=== PATIENT | female | born 1945 | race African-American/Black ===

== ENCOUNTER → 2023-01-15 14:38 | Outpatient (REF) | payer MEDICARE, MEDICAID, SELFPAY ==
--- NOTE | 2023-01-15 14:47 | CA_ITS ---
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 Normal LV systolic function with LVEF of 55-60% with impaired relaxation filling pattern 2. Trace aortic regurgitation 3. Normal RV systolic pressure 4. No gross pericardial effusion Findings Procedure Information The quality of the study was technically difficult. The study quality is limited by patients body habitus and lung artifact. Left Ventricle Normal left ventricular size, thickness, and systolic function. The visually estimated ejection fraction is between 55-60%. Spectral Doppler is indicative of an impaired relaxation filling pattern. E/E prime ratio is between 8 and 15 consistent with indeterminate filling pressures. Peak GLS is -12%, which is moderately reduced. Right Ventricle Normal right ventricular cavity size. There is borderline right ventricular systolic function. Atria The left atrium is normal in size. Interatrial shunt cannot be excluded. The right atrium is normal in size. Aortic Valve The aortic valve was not well visualized. There is no aortic valve stenosis. There is trace (trivial) aortic valve regurgitation. Mitral Valve There is mild anterior and posterior mitral leaflet thickening. There is trace mitral valve regurgitation. There is no mitral valve stenosis. Pulmonic Valve The pulmonic valve was not well visualized. Tricuspid Valve Likely normal tricuspid valve structure and function. There is trace tricuspid valve regurgitation. The right ventricular systolic pressure is normal. The right ventricular systolic pressure is 25 mmHg. Normal right atrial pressure. There is no evidence of pulmonary hypertension. Great Vessels All visible segments of the aorta are normal in size. The pulmonary artery was not well visualized. Venous The inferior vena cava is normal in size and collapses greater than 50% with inspiration. Pericardium/Pleural There is no evidence of pericardial effusion. Prior Study Comparison No prior study available for comparison. Measurements 2D Linear Measurements IVSd: 0.95 0.6-0.9/0.6-1.0 cm LVIDd: 4.21 3.9-5.3/4.2-5.9 cm LVIDd Index: 2.34 2.4-3.2/2.2-3.1 cm/m2 LVIDs: 3.03 2.0-3.6 cm LVPWd: 0.74 0.7-1.1 cm LA Diam: 4.00 2.7-3.8/3.0-4.0 cm LAIDs Index: 2.22 1.5-2.3 cm/m2 LV Mass: 135.67 67-162/88-224 g LV Mass Index: 75.37 43-95/49-115 g/m2 LVOT Diam: 2.10 3.0+(-)1.3 cm 2D Systolic Function EF 2C: 55.60 >55% Mitral Valve MV Pk E: 0.60 MV PK A: 0.97 MV Decel Time: 209.00 E/A: 0.60 E'Lateral: 4.46 E'Medial: 3.81 E/E' Med: 15.60 E/E' Lat: 13.40 PHT: 61.00 MVA PHT: 3.61 Decel [place]: 2.85 Aortic Valve AoV Pk Esvin: 1.34 AoV Pk Grad: 7.00 MICHELLE: 2.69 LVOT LVOT Pk Esvin: 0.99 LVOT Mn Esvin: 0.66 LVOT VTI: 0.18 LVOT Pk Grad: 4.00 LVOT Mn Grad: 2.00 LVOT Diam: 2.10 LVOT Area: 3.46 Diastolic Function MV Pk E: 0.60 MV Pk A: 0.97 E/A: 0.60 E'Medial: 3.81 E/E' Med: 15.60 E' Laterial: 4.46 E/E' Lat: 13.40 Right Ventricle TAPSE (mm): 19.10 TVS' Esvin: 10.00 Tricuspid Valve TR Pk Esvin: 2.37 TR Pk Grad: 22.00 RA Press: 3.00 RVSP: 25.00 Great Vessels Aorta Sinus of Valsalva: 3.30 2.0-3.5 cm Ao Asc: 3.30 2.1-3.4 cm Pulmonary Valve PV Pk Esvin: 0.94 Peak PV Grad: 3.00 Updated in Other Vendor System with Status of Final Luis Ariza MD electronically signed on 01/16/2023 2:11:26 PM with status of Final
== END ==
LOC: HO.CARD 14:38
PROVIDERS: PCP Internal Medicine; Visit Provider Internal Medicine Pulmonary Disease
DX: R06.09 Other forms of dyspnea (principal)
CPT/HCPCS: 93306; 93356

== ENCOUNTER → 2023-01-15 14:47 | Outpatient (BNV) | payer MEDICARE, MEDICAID, SELFPAY | PROVIDERS: PCP Internal Medicine; Visit Provider Internal Medicine Cardiovascular Disease | DX: I34.89 Other nonrheumatic mitral valve disorders (principal) | CPT/HCPCS: 93306 ==

== ENCOUNTER 2023-05-01 21:44 | Inpatient (IN) | payer MEDICARE, MEDICAID, SELFPAY ==
--- OUTSIDE RECORDS SUMMARY | 2023-05-01 21:51 | XMS_ITS | Continuity of Care Document ---
Author Name Unknown Organization [facility] Address [address] [address]- Care Team Providers Care Mill Work Name Role Phone Yassine Harmon MD Primary Care Physician [place] [facility] [place] 06/20/19 - 06/27/19 [facility] [address] [place] [address]- [facility] Attending Physician: Mu Mendoza MD Admitting Physician: Mu Mendoza MD Referring Physician: Yassine Harmon MD Allergies, Adverse Reactions, Alerts Substance Reaction Severity Status phenothiazines Rash Active Tegretol LEUKOPENIA Active Dilantin Rash Moderate Active Cogentin CONFUSED Active Keppra CONFUSED Active Immunizations Given and Recorded Vaccine Date Status Refusal Reason Hepatitis B Vaccine (old term) 1 01/12/13 Given Hepatitis B Vaccine (old term) 2 07/20/12 Given Hepatitis B Vaccine (old term) 3 06/08/12 Given Hepatitis A Vaccine (oldterm) 4 01/12/13 Given Hepatitis A Vaccine (oldterm) 5 06/08/12 Given Typhoid Vaccine, Inactivated 06/08/12 Given pneumococcal 23-valent vaccine 04/23/12 Given Pneumococcal Vaccine (oldterm) 05/27/07 Given 1Admin Note: hep b #3 2Admin Note: hep B #2 3Admin Note: hep B #1 4Admin Note: hep A #2 5Admin Note: hep A#1 Medications Abilify 2 mg oral tablet 2 mg, 1, tablet, By Mouth, Daily, # 30 tablet, Refills 5, Tot. Refills 5, Maintenance, 12/17/16 12:09:00, Route to Pharmacy Electronically, [id number], [facility]/pharmacy #[id number] Start Date: 12/17/16 Status: Ordered AutoCPAP 12-17 with heated humidification; P-10 for Her, extra small AutoCPAP 12-17 with heated humidification; P-10 for Her, extra small, See Instructions, # 1 each, Refills 0, Tot. Refills 0, Maintenance, from [facility], 07/04/17 14:11:23, Compound Start Date: 07/04/17 Status: Ordered Hydrochlorothiazide = 12.5 mg, By Mouth, Daily, 0 Refills, Maintenance, 12/22/14 8:57:01 Start Date: 12/22/14 Status: Ordered lamotrigine 200 mg oral tablet 1 tablet = 200 mg, By Mouth, Daily, # 45 tablet, 5 Refills, Maintenance, 10/14/16 17:22:12 Start Date: 10/14/16 Status: Ordered levothyroxine 0.05 mg oral tablet By Mouth, Daily, 0 Refills, Tablet Start Date: 12/03/10 Status: Ordered metoprolol 25 mg oral tablet 2, By Mouth, 2 times a day, 0 Refills, 12/03/10 13:34:24, Tablet Start Date: 12/03/10 Status: Ordered mirtazapine 30 mg oral tablet 2 tablet = 60 mg, By Mouth, Daily at bedtime, # 60 tablet, 5 Refills, Maintenance, 08/21/16 9:59:54, Tablet Start Date: 08/21/16 Status: Ordered Myrbetriq 50 mg oral tablet, extended release 1 tablet = 50 mg, By Mouth, Daily, # 30 tablet, 11 Refills, Maintenance, 06/20/19 9:20:44 EST, [facility]/pharmacy #[id number], 155, cm, 06/20/19 8:37:40 EST, Height Start Date: 06/20/19 Status: Ordered NuLYTELY with Flavor Packs oral powder for reconstitution 240 mL, By Mouth, Daily, Follow custom instructions, # 480 mL, 0 Refills, Maintenance, 02/07/16 15:25:06, REC Powder, 240 mL By Mouth Daily,Instr:Follow custom instructions Start Date: 02/07/16 Status: Ordered oxybutynin 5 mg/24 hours oral tablet, extended release 1 tablet = 5 mg, By Mouth, Daily, # 30 tablet, 11 Refills, Maintenance, 12/17/18 10:34:18 EDT, ER Tablet Start Date: 12/17/18 Status: Ordered ProAir HFA 90 mcg/inh inhalation aerosol with adapter 2 puffs, Inhalation, Every 4 hours, PRN for wheezing, # 8.5 Gm, 0 Refills, Aerosol Start Date: 12/25/10 Status: Ordered risperiDONE 1 mg oral tablet See Instructions, 0.5 tab po bid and 2 tab po qhs, # 90 tablet, Refills 5, Tot. Refills 5, Maintenance, 10/14/16 17:23:38, Instructions Replace Required Details, Route to Pharmacy Electronically, [id number], [facility]/pharmacy #[id number] Start Date: 10/14/16 Status: Ordered valsartan 40 mg oral tablet 40 mg, 1, tablet, By Mouth, 2 times a day, # 60 tablet, Refills 0, Maintenance, 06/20/19 8:42:03 EST Start Date: 06/20/19 Status: Ordered Viibryd 20 mg oral tablet 1 tablet = 20 mg, By Mouth, Daily, take with one 40 mg tablet, # 30 tablet, 5 Refills, Maintenance,09/08/16 18:39:17 Start Date: 09/08/16 Status: Ordered Viibryd 40 mg oral tablet 1 tablet = 40 mg, By Mouth, Daily, take with one 20 mg tablet, # 30 tablet, 5 Refills, Maintenance,09/08/16 18:39:37 Start Date: 09/08/16 Status: Ordered Problem List Condition Effective Dates Status Health Status Inform ant SARAH on CPAP(Confirmed) Active Travel vaccinations(Confirmed) Active Vital Signs Most recent to oldest [Reference Range]: 1 Height 155 cm (06/20/19 8:37 AM) Blood Pressure [90-138/55-84 mm Hg] 128/ 74mm Hg (06/20/19 8:37 AM) Social History Social History Type Response Smoking Status Never smoker entered on: 11/29/13 Sex
--- OUTSIDE RECORDS SUMMARY | 2023-05-01 21:51 | XMS_ITS | Continuity of Care Document ---
Author Name Unknown Organization [facility] Address [address] [place] [id number]- Care Team Providers Care Rotary Shear Cutter Name Role Phone Bret ZAMBRANO, Kelley Primary Care Physician Encounter [facility] [place] Date(s): 11/18/21 - 12/18/21 [facility] [address] [place] [id number] Allergies, Adverse Reactions, Alerts Substance Reaction Severity [...] #2 5Admin Note: hep A#1 Medications Abilify 5 mg oral tablet 5 mg, 1, tablet, By Mouth, Daily, # 30 tablet, Refills 0, Maintenance, 08/10/20 13:10:00 EST, Partial fill upon patient request if the prescription is for a schedule II opioid drug. Start Date: 08/10/20 Status: Ordered Advair Diskus 250 mcg-50 mcg inhalation powder 1, puffs, Inhalation, 2 times a day, rinse mouth and throat after use, # 60 each, Refills 0, Maintenance, 03/04/21 11:29:00 EST, Powder Start Date: 09/06/20 Status: Ordered Advair Diskus 250 mcg-50 mcg inhalation powder 1, inhalation, Inhalation, 2 times a day, rinse mouth and throat after use, Refills 0, Maintenance,12/17/20 14:44:00 EDT, Powder Start Date: 12/17/20 Status: Ordered aspirin 81 mg oral delayed release tablet 1 tablet = 81 mg, By Mouth, Daily, # 90 tablet, 0 Refills, Maintenance, 12/17/20 14:43:00 EDT, CR Tablet, Partial fill upon patient request if the prescription is for a schedule II opioid drug. Start Date: 12/17/20 Status: Ordered atorvastatin 10 mg oral tablet 1 tablet = 10 mg, By Mouth, Daily in AM, 0 Refills, Maintenance, 07/12/19 13:52:00 EST Start Date: 07/12/19 Status: Ordered CPAP Machine See Instructions, # 1 each, Maintenance, AutoCPAP -, 07/12/19 14:51:00 EST, Compound Start Date: 07/12/19 Status: Ordered hydrochlorothiazide 25 mg oral tablet 25 mg, 1, tablet, By Mouth, Daily in AM, Refills 0, Maintenance, 02/17/20 10:01:00 EDT Start Date: 02/17/20 Status: Ordered LaMICtal 150 mg oral tablet 1 tablet = 150 mg, By Mouth, Daily at bedtime, 0 Refills, Maintenance, 02/17/20 10:01:00 EDT Start Date: 02/17/20 Status: Ordered levothyroxine 0.05 mg oral tablet 1 tablet = 50 mcg, By Mouth, Daily in AM, 0 Refills, 12/03/10 13:34:12 EDT, Tablet Start Date: 12/03/10 Status: Ordered mirtazapine 30 mg oral tablet 2 tablet = 60 mg, By Mouth, Daily at bedtime, # 60 tablet, 5 Refills, Maintenance, 08/21/16 9:59:54, Tablet Start Date: 08/21/16 Status: Ordered pantoprazole 40 mg oral delayed release tablet 1 tablet, By Mouth, Daily, # 90 tablet, 3 Refills, Maintenance, 11/06/20 19:34:00 EDT, 155, cm, 10/26/20 8:30:00 EDT, Height, 77.2, kg, 08/20/20 7:41:00 EST, Dry Weight Start Date: 11/06/20 Status: Ordered ProAir HFA 90 mcg/inh inhalation aerosol with adapter 2 puffs, Inhalation, Every 4 hours, PRN for wheezing, # 8.5 Gm, 0 Refills, Aerosol Start Date: 12/25/10 Status: Ordered Review of CPAP machine Review of CPAP machine, See Instructions, # 1 each, Refills 0, Tot. Refills 0, Maintenance, please check CPAP machine patient states it's malfunction Dx SARAH G47.33, 11/18/21 17:05:00 EDT, Supply Start Date: 11/18/21 Status: Ordered tamoxifen 20 mg oral tablet 1 tablet = 20 mg, By Mouth, Daily, for 90 days, # 90 tablet, 3 Refills, Hard Stop 03/09/22 10:00:00EDT, 03/14/21 10:00:00 EDT, Tablet, [facility]/pharmacy #[id number], 155, cm, 08/20/20 7:41:00 EST, Height, 77.2, kg, 08/20/20 7:41:00 EST, Dry Weight Start Date: 03/14/21 Stop Date: 03/09/22 Status: Ordered tamoxifen 20 mg oral tablet 1 tablet = 20 mg, By Mouth, Daily, # 90 tablet, 3 Refills, Maintenance, 03/09/22 10:00:00 EDT, Tablet, [facility]/pharmacy #[id number], 155, cm, 06/19/21 10:45:00 EST, Height, 75, kg, 01/26/21 16:14:00 EDT, Dry Weight Start Date: 03/09/22 Stop Date: 03/04/23 Status: Ordered triamcinolone 0.025% topical cream 1 application, Topically, 2 times a day, # 60 Gm, 0 Refills, Maintenance, 02/17/20 10:04:00 EDT, Cream Start Date: 02/17/20 Stop Date: 03/02/20 Status: Ordered valsartan 80 mg oral tablet 80 mg, 1, tablet, By Mouth, 2 times a day, Refills 0, Maintenance, 02/17/20 9:58:00 EDT Start Date: 02/17/20 Status: Ordered Viibryd 20 mg oral tablet [...] Effective Dates Status Health Status Inform ant Obese class II(Confirmed) Active SARAH on CPAP(Confirmed) Active Travel vaccinations(Confirmed) Active Social History Social History Type Response Smoking Status Never smoker entered on: 11/29/13 Sex
--- OUTSIDE RECORDS SUMMARY | 2023-05-01 21:51 | XMS_ITS | Continuity of Care Document ---
Author Name Unknown Organization [facility] Address [address] [place] [address]- Care Team Providers Care Airplane Rental Clerk Name Role Phone Olesya Goddard MD Primary Care Physician [phone] Encounter [facility] [id number] Date(s): 03/22/20 - 03/29/20 [facility] [address] [place] [address]- [facility] Attending Physician: Jose Elias Velásquez MD Admitting Physician: Jose Elias Velásquez MD Referring Physician: Olesya Goddard MD Allergies, Adverse Reactions, Alerts Substance Reaction [...] Maintenance, 12/17/16 12:09:00, Route to Pharmacy Electronically, [id number], [facility]/pharmacy #[id number] Start Date: 12/17/16 Status: Ordered atorvastatin 10 mg oral tablet 1 tablet = 10 mg, By Mouth, Daily in AM, 0 Refills, Maintenance, 07/12/19 13:52:00 EST Start Date: 07/12/19 Status: Ordered CPAP Machine See Instructions, # 1 each, Maintenance, AutoCPAP -, 07/12/19 14:51:00 EST, Compound Start Date: 07/12/19 Status: Ordered Flovent HFA 110 mcg/inh inhalation aerosol 2 puffs, Inhalation, 2 times a day, # 12 Gm, 0 Refills, Maintenance, 02/17/20 10:02:00 EDT, Aerosol Start Date: 02/17/20 Status: Ordered hydrochlorothiazide 25 mg oral tablet [...] EDT, Tablet Start Date: 12/03/10 Status: Ordered melatonin 5 mg oral tablet 1 tablet = 5 mg, By Mouth, Daily at bedtime, PRN for insomnia, # 60 tablet, 0 Refills, Maintenance,02/17/20 10:03:00 EDT, Tablet Start Date: 02/17/20 Status: Ordered mirtazapine 30 mg oral tablet 2 tablet = 60 mg, By Mouth, Daily at bedtime, # 60 tablet, 5 Refills, Maintenance, 08/21/16 9:59:54, Tablet Start Date: 08/21/16 Status: Ordered mirtazapine 30 mg oral tablet 1 tablet = 30 mg, By Mouth, 2 times a day, 0 Refills, Maintenance, 02/17/20 10:02:00 EDT Start Date: 02/17/20 Status: Ordered Myrbetriq 50 mg oral tablet, extended release 1 tablet = 50 mg, By Mouth, Daily, # 30 tablet, 11 Refills, Maintenance, 06/20/19 9:20:44 EST, [facility]/pharmacy #[id number], 155, cm, 06/20/19 8:37:40 EST, Height Start Date: 06/20/19 Status: Ordered predniSONE 20 mg oral tablet 2 tablet = 40 mg, By Mouth, Daily, currently tapering medication. Will be off in two weeks, # 10 tablet, 0 Refills, Maintenance, 02/17/20 10:03:00 EDT, Tablet Start Date: 02/17/20 Status: Ordered ProAir HFA 90 mcg/inh inhalation aerosol with adapter 2 puffs, Inhalation, Every 4 hours, PRN for wheezing, # 8.5 Gm, 0 Refills, Aerosol Start Date: 12/25/10 Status: Ordered tamoxifen 20 mg oral tablet 1 tablet = 20 mg, By Mouth, Daily, # 90 tablet, 3 Refills, Maintenance, 03/19/20 10:00:00 EDT, Tablet, [facility]/pharmacy #[id number], 158, cm, 03/19/20 9:15:00 EDT, Height, 78.1, kg, 03/19/20 9:15:00 EDT, Dry Weight Start Date: 03/19/20 Stop Date: 03/14/21 Status: Ordered triamcinolone 0.025% topical cream 1 [...] recent to oldest [Reference Range]: 1 Height 158 cm (03/22/20 11:27 AM) Temperature [96.8-100.4 DegF] 98.2 DegF (03/22/20 11:27 AM) Temperature Route Oral (03/22/20 11:27 AM) Social History Social History Type Response Smoking Status Never smoker entered on: 11/29/13 Sex
--- OUTSIDE RECORDS SUMMARY | 2023-05-01 21:51 | XMS_ITS | Continuity of Care Document ---
Author Name Unknown Organization [facility] Address [address] [place] [address]- Care Team Providers Care Laborer Road Name Role Phone Rupesh ZAMBRANO, Olesya Carrillo Primary Care Physician [phone] [place] [facility] [place] 08/10/20 - 09/09/20 [facility] [address] [place] [address]- Attending Physician: Vijaya Parra Admitting Physician: AdmtrVijaya Referring Physician: Admtr, Ar8 Allergies, Adverse Reactions, Alerts Substance Reaction Severity [...] use, # 60 each, Refills 0, Maintenance, 09/06/20 11:29:00 EST, Powder Start Date: 09/06/20 Status: Ordered atorvastatin 10 mg oral tablet 1 tablet = 10 mg, By Mouth, Daily in AM, 0 Refills, Maintenance, 07/12/19 13:52:00 EST Start Date: 07/12/19 Status: Ordered CPAP Machine See Instructions, # 1 each, Maintenance, AutoCPAP 12-17, 07/12/19 14:51:00 EST, Compound Start Date: 07/12/19 [...] 9:59:54, Tablet Start Date: 08/21/16 Status: Ordered ProAir HFA 90 mcg/inh inhalation aerosol with adapter 2 puffs, Inhalation, Every 4 hours, PRN for wheezing, # 8.5 Gm, 0 Refills, Aerosol Start Date: 12/25/10 Status: Ordered Protonix 40 mg oral delayed release tablet 1 tablet = 40 mg, By Mouth, Daily, # 30 tablet, 3 Refills, Maintenance, 08/20/20 9:12:00 EST, 155, cm, 08/20/20 7:41:00 EST, Height, 77.2, kg, 08/20/20 7:41:00 EST, Dry Weight Start Date: 08/20/20 Stop Date: 12/18/20 Status: Ordered tamoxifen 20 mg oral tablet 1 tablet = 20 mg, By Mouth, Daily, # 90 tablet, 3 Refills, Maintenance, 03/19/20 10:00:00 EDT, Tablet, [facility]/pharmacy #[id number], 158, cm, 03/19/20 9:15:00 EDT, Height, [...]
--- OUTSIDE RECORDS SUMMARY | 2023-05-01 21:51 | XMS_ITS | Continuity of Care Document ---
Author Name Unknown Organization [facility] Address [address] [place] [id number]- Care Team Providers Care Machine Designer Name Role Phone Eden ZAMBRANO, Yassine Mukherjee Primary Care Physician Encounter [facility] Date(s): 08/15/19 - 08/15/[address] [address] Attending Physician: Olesya Goddard MD Allergies, Adverse Reactions, [...] Maintenance, 12/17/16 12:09:00, Route to Pharmacy Electronically, [id number], [facility]/pharmacy #[id number] Start Date: 12/17/16 Status: Ordered atorvastatin 10 mg oral tablet 1 tablet = 10 mg, By Mouth, Daily, 0 Refills, Maintenance, 07/12/19 13:52:00 EST Start Date: 07/12/19 Status: Ordered CPAP Machine See Instructions, # 1 each, Maintenance, AutoCPAP -, 07/12/19 14:51:00 EST, Compound Start Date: 07/12/19 Status: Ordered Hydrochlorothiazide = 12.5 mg, By Mouth, Daily, 0 Refills, Maintenance, 12/22/14 8:57:01 Start Date: 12/22/14 Status: Ordered Ibuprofen Refills 0, Maintenance, 07/12/19 13:55:00 EST Start Date: 07/12/19 Status: Ordered lamotrigine 200 mg oral tablet 1 tablet = 200 mg, By Mouth, Daily, # 45 tablet, 5 Refills, Maintenance, 10/14/16 17:22:12 Start Date: 10/14/16 Status: Ordered levothyroxine 0.05 mg oral tablet By Mouth, Daily, 0 Refills, Tablet Start Date: 12/03/10 Status: Ordered mirtazapine 30 mg oral tablet 2 tablet = 60 mg, By Mouth, Daily at bedtime, # 60 tablet, 5 Refills, Maintenance, 08/21/16 9:59:54, Tablet Start Date: 08/21/16 Status: Ordered Myrbetriq 50 mg oral tablet, extended release 1 tablet = 50 mg, By Mouth, Daily, # 30 tablet, 11 Refills, Maintenance, 06/20/19 9:20:44 EST, [facility]/pharmacy #[id number], 155, cm, 06/20/19 8:37:40 EST, Height [...] Replace Required Details, Route to Pharmacy Electronically, [id number], [facility]/pharmacy #[id number] Start Date: 10/14/16 Status: Ordered Triamcinolone Intra-articular, Once, 0 Refills, Maintenance, 07/12/19 13:54:00 EST Start Date: 07/12/19 Status: Ordered valsartan 40 mg oral tablet [...]
--- OUTSIDE RECORDS SUMMARY | 2023-05-01 21:51 | XMS_ITS | Continuity of Care Document ---
Author Name Unknown Organization [facility] Address [address] [place] [address]- Care Team Providers Care Rd Project Manager Name Role Phone Kelley Queen MD Primary Care Physician Encounter [facility] Date(s): 05/28/22 - 08/18/[address] [address]- Encounter Diagnosis Malignant neoplasm of upper-outer quadrant of right female breast(Final) - Discharge Disposition: A-D/C Home Attending Physician: Miguel Merritt DO Admitting Physician: Miguel Merritt DO Referring Physician: Not on Staff, Referring MD Allergies, Adverse Reactions, Alerts Substance Reaction [...] # 90 tablet, 3 Refills, Hard Stop 03/04/23 10:00:00EDT, 03/09/22 10:00:00 EDT, Tablet, [facility]/pharmacy #[id number], 155, cm, 06/19/21 10:45:00 EST, Height, 75,kg, 01/26/21 16:14:00 EDT, Dry Weight Start Date: 03/09/22 Stop Date: 03/04/23 Status: Ordered tamoxifen 20 mg oral tablet 1 tablet = 20 mg, By Mouth, Daily, # 90 tablet, 3 Refills, Maintenance, 03/04/23 10:00:00 EDT, Tablet, [facility]/pharmacy #[id number], 155, cm, 12/16/21 10:01:00 EDT, Height, 87.9, kg, 12/16/21 10:01:00 EDT, DryWeight Start Date: 03/04/23 Stop Date: 02/27/24 Status: Ordered triamcinolone 0.025% topical cream 1 [...] Date: 09/08/16 Status: Ordered Problem List Condition Confirmation Course Effective Dates Status Health St atus Informant Obese class I Confirmed Active SARAH on CPAP Confirmed Active Travel vaccinations Confirmed Active Vital Signs Most recent to oldest [Reference Range]: 1 Height 155 cm (06/18/22 9:49 AM) Weight 82.4 kg (06/18/22 9:49 AM) Oxygen Saturation [94-100 %] 96 % (06/18/22 9:49 AM) Pulse Rate [55-90 bpm] 88 bpm (06/18/22 9:49 AM) Body Mass Index [18.5-24.99 kg/m2] 34.3 kg/m2 *>HHI* (06/18/22 9:49 AM) Blood Pressure [90-138/55-84 mm Hg] 139/ 72mm Hg *H* (06/18/22 9:49 AM) Respiratory Rate [16-30 br/min] 18 br/mi n (06/18/22 9:49 AM) Temperature [96.8-100.4 DegF] 98.7 DegF (06/18/22 9:49 AM) Liters per Minute 0 L/min (06/18/22 9:49 AM) Mode of Delivery (Oxygen) Room air (06/18/22 9:49 AM) Blood pressure sites Arm, right (06/18/22 9:49 AM) Temperature Route Oral (06/18/22 9:49 AM) Dry Weight 82.4 kg (06/18/22 9:49 AM) Weight Obtained Via Standing scale (06/18/22 9:49 AM) Dry Weight Obtained Via Standing scale (06/18/22 9:49 AM) Social History Social History Type Response Smoking Status Never smoker entered on: 11/29/13 Sex Note * Emani Johnson: PERFORM, SIGN, VERIFY Event Display: Patient Education/Instruction Authored Date: [id number] [facility] Clinical Summary Name NOELLE MILAN Age 77 Years 1945 PCP Kelley Queen MD PCP Visit Date 05/28/2022 14:24:00 Additional Instructions: Scheduled Appointments?? Future Appointments ?No Future Appointments Scheduled Follow-Up Instructions ?? Diagnosis Medications: Please continue your medications until treatment is completed or stopped by your provider. Discuss any questions related to medications with your provider. Medications to Continue Taking That Have Changed These medications were not printed or sent to your pharmacy - Tamoxifen (tamoxifen 20 mg oral tablet) 1 tab(s) Oral Daily for 90 Days. Refills: 3. Next Dose: - Tamoxifen (tamoxifen 20 mg oral tablet) 1 tab(s) Oral Daily for 90 Days. Refills: 3. Next Dose: Medications to Continue with No Changes These medications were not printed or sent to your pharmacy Albuterol (ProAir HFA 90 mcg/inh inhalation aerosol with adapter) 2 puff(s) Inhalation every 4 hours as needed for wheezing. Next Dose: Aripiprazole (Abilify 5 mg oral tablet) 1 tab(s) Oral Daily. Next Dose: Aspirin (aspirin 81 mg oral delayed release tablet) 1 tab(s) Oral Daily. Next Dose: Atorvastatin (atorvastatin 10 mg oral tablet) 1 tab(s) Oral Daily in the morning. Next Dose: Durable Medical Equipment (CPAP Machine) AutoCPAP 12-17. Refills: 0. Next Dose: Durable Medical Equipment (Review of CPAP machine) please check CPAP machine patient states it's malfunction Dx SARAH G47.33. Refills: 0. Next Dose: Fluticasone-Salmeterol (Advair Diskus 250 mcg-50 mcg inhalation powder) 1 puff(s) Inhalation twice a day. rinse mouth and throat after use. Next Dose: Fluticasone-Salmeterol (Advair Diskus 250 mcg-50 mcg inhalation powder) 1 inhalation Inhalation twice a day. rinse mouth and throat after use. Next Dose: Hydrochlorothiazide (hydrochlorothiazide 25 mg oral tablet) 1 tab(s) Oral Daily in the morning. Next Dose: Lamotrigine (LaMICtal 150 mg oral tablet) 1 tab(s) Oral Daily at Bedtime. Next Dose: Levothyroxine (levothyroxine 0.05 mg oral tablet) 1 tab(s) Oral Daily in the morning. Next Dose: Mirtazapine (mirtazapine 30 mg oral tablet) 2 tab(s) Oral Daily at Bedtime. Refills: 5. Next Dose: Pantoprazole (pantoprazole 40 mg oral delayed release tablet) 1 tab(s) Oral Daily. Refills: 3. Next Dose: Triamcinolone Topical (triamcinolone 0.025% topical cream) 1 vilma Topically twice a day for 14 Days. Next Dose: Valsartan (valsartan 80 mg oral tablet) 1 tab(s) Oral twice a day. Next Dose: vilazodone (Viibryd 20 mg oral tablet) 1 tab(s) Oral Daily. take with one 40 mg tablet. Refills: 5. Next Dose: vilazodone (Viibryd 40 mg oral tablet) 1 tab(s) Oral Daily. take with one 20 mg tablet. Refills: 5. Next Dose: Allergy Info:?? Keppra; Cogentin; Dilantin; Tegretol; phenothiazines Medications Given This Visit Future Orders ?No future orders Vital Signs Height Weight BMI Blood Pressure / Temperature Pulse Rate Respiratory Rate 02 Sat Mode of Delivery / You can now view a summary of your hospital visit from the comfort of your home through a free online portal called [employer]. [employer] is a website that allows you to securely view your medical information including discharge summary, medications and follow-up visits. ??You can alsosend a secure electronic message to your doctor???s office to request appointments, renew medications or just ask a question. You can enroll at [email or web address] or register during your next office visit. Disclaimer:?? The information provided is of a general nature and is intended to be used in conjunction with the recommendations and advice of your health care practitioner. ??Every effort has been made to ensure that the information provided is accurate and complete at the time it is provided to you however, as your needs change, or, as new ??information becomes available, different or additional instructions may be required. If you have questions, please consult with your primary care provider or pharmacist, as appropriate. ??This information is not intended to serve as substitution for assessment and evaluation by a qualified health care provider. If you do not have a primary care provider, you may find a [facility] provider by calling [facility] at [phone]. For information about the plan of care including goals and instructions for your diagnosis, please see the patient education orders section of this document. Patient Education Materials?? The content of this educational material or handout may have been modified, supplemented, or adapted from its original content and format to support your individualized medical care. Patient Care team information Care Team Personnel Name: Christi Sanchez Position: [facility] Outreach Member Role: Lifetime Consulting Physician Name: Kelley Queen MD Position: [facility] Outreach Member Role: PCP Address: Address: [address] [place] [id number] Name: Deb Reynolds RN Position: [facility] RN Member Role: Primary Care Nurse Care Team Related Persons Name: FRIEDA CONTRERAS Address: [place] [address] Name: RYAN CONTRERAS Address: [place] [address]
--- OUTSIDE RECORDS SUMMARY | 2023-05-01 21:51 | XMS_ITS | Continuity of Care Document ---
Author Name Unknown Organization [facility] Address [address] [place] [address]- Care Team Providers Care Meeting Specialist Name Role Phone Rupesh ZAMBRANO, Olesya Carrillo Primary Care Physician [phone] Encounter [place] Date(s): 09/11/20 - 10/11/[address] [address] Allergies, Adverse Reactions, Alerts Substance Reaction Severity [...] # 90 tablet, 3 Refills, Hard Stop 03/14/21 10:00:00EDT, 03/19/20 10:00:00 EDT, Tablet, [facility]/pharmacy #[id number], 158, cm, 03/19/20 9:15:00 EDT, Height, 78.1, kg, 03/19/20 9:15:00 EDT, Dry Weight Start Date: 03/19/20 Stop Date: 03/14/21 Status: Ordered tamoxifen 20 mg oral tablet 1 tablet = 20 mg, By Mouth, Daily, # 90 tablet, 3 Refills, Maintenance, 03/14/21 10:00:00 EDT, Tablet, [facility]/pharmacy #[id number], 155, cm, 08/20/20 7:41:00 EST, Height, 77.2, kg, 08/20/20 7:41:00 EST, Dry Weight Start Date: 03/14/21 Stop Date: 03/09/22 Status: Ordered triamcinolone 0.025% topical cream 1 [...]
--- OUTSIDE RECORDS SUMMARY | 2023-05-01 21:51 | XMS_ITS | Continuity of Care Document ---
Author Name Unknown Organization [facility] Address [address] [place] [address]- Care Team Providers Care Occupational Health Technician Name Role Phone Olesya Goddard MD Primary Care Physician [id number] Date[facility] [address] [place] [address]- [facility] Attending Physician: Lamonte Oliva DO Referring Physician: Olesya Goddard MD Allergies, Adverse [...] Maintenance, 12/17/16 12:09:00, Route to Pharmacy Electronically, [id number], [facility]/pharmacy #[id number] Start Date: 12/17/16 Status: Ordered atorvastatin [...] 9:59:54, Tablet Start Date: 08/21/16 Status: Ordered mometasone 0.1% topical cream See Instructions, 1 application Topically twice daily apply a thin film, # 45 Gm, 1 Refills, Acute 07/05/20 8:47:00 EST, 04/04/20 8:46:00 EDT, Cream, [facility]/pharmacy #[id number], 1 application Topically twicedaily; apply a thin film, 150.8, cm, 03/30/20 13:0... Start Date: 04/04/20 Stop Date: 07/05/20 Status: Ordered predniSONE 20 mg oral tablet [...] 3 Refills, Maintenance, 03/19/20 10:00:00 EDT, Tablet, [facility]/pharmacy #[id number], 158, cm, 03/19/20 9:15:00 EDT, [...]
--- OUTSIDE RECORDS SUMMARY | 2023-05-01 21:51 | XMS_ITS | Continuity of Care Document ---
Author Name Unknown Organization [facility] Address [address] [place] [address]- Care Team Providers Care Storage Management Architect Name Role Phone Yassine Harmon MD Primary Care Physician [phone] Encounter [facility] Date(s): 07/12/19 - 07/22/[address] [address]- [facility] Attending Physician: Vijaya Parra Admitting Physician: AdmVijaya zapata Referring Physician: AdmtrVijaya Allergies, Adverse Reactions, Alerts Substance Reaction Severity [...] Maintenance, 12/17/16 12:09:00, Route to Pharmacy Electronically, [id number], [facility]/pharmacy #[id number] Start Date: 12/17/16 Status: Ordered atorvastatin [...] tablet, 11 Refills, Maintenance, 06/20/19 9:20:44 EST, [facility]/pharmacy #[id number], 155, cm, 06/20/19 [...] Replace Required Details, Route to Pharmacy Electronically, [id number], [facility]/pharmacy #[id number] Start Date: 10/14/16 Status: Ordered Triamcinolone [...]
--- OUTSIDE RECORDS SUMMARY | 2023-05-01 21:51 | XMS_ITS | Continuity of Care Document ---
Author Name Unknown Organization [facility] Address [address] [place] [address]- Care Team Providers Care Livestock Agent Name Role Phone Rupesh ZAMBRANO, Olesya Carrillo Primary Care Physician [phone] En[place] [facility] Date(s): 09/06/20 - 10/06/[address] [address]- Attending Physician: Vijaya Parra Admitting Physician: Vijaya Parra Referring Physician: AdmVijaya zapata Allergies, Adverse Reactions, Alerts Substance Reaction Severity [...] Stop 03/14/21 10:00:00EDT, 03/19/20 10:00:00 EDT, Tablet, [facility]/pharmacy #[id number], 158, cm, 03/19/20 9:15:00 EDT, Height, 78.1, kg, 03/19/20 9:15:00 EDT, Dry Weight Start Date: 03/19/20 Stop Date: 03/14/21 Status: Ordered tamoxifen 20 mg oral tablet 1 tablet = 20 mg, By Mouth, Daily, # 90 tablet, 3 Refills, Maintenance, 03/14/21 10:00:00 EDT, Tablet, [facility]/pharmacy #[id number], 155, cm, 08/20/20 [...]
--- OUTSIDE RECORDS SUMMARY | 2023-05-01 21:51 | XMS_ITS | Continuity of Care Document ---
Author Name Unknown Organization [facility] Address [address] [place] [address]- Care Team Providers Care Joint Maker Machine Name Role Phone Rupesh ZAMBRANO, Olesya Carrillo Primary Care Physician [phone] Encounter [facility] Date(s): 03/16/20 - 04/15/20 [facility] [address] [place] [address]- [facility] Attending Physician: Vijaya Parra Admitting Physician: AdmVijaya [...] Maintenance, 12/17/16 12:09:00, Route to Pharmacy Electronically, [id number], [facility]/pharmacy #[id number] Start Date: 12/17/16 Status: Ordered [...] 07/05/20 8:47:00 EST, 04/04/20 8:46:00 EDT, Cream, [facility]/pharmacy #[id number], 1 application Topically twicedaily; apply a thin [...] 3 Refills, Maintenance, 03/19/20 10:00:00 EDT, Tablet, [facility]/pharmacy #[id number], 158, cm, 03/19/20 9:15:00 EDT, [...]
--- OUTSIDE RECORDS SUMMARY | 2023-05-01 21:51 | XMS_ITS | Continuity of Care Document ---
Author Name Unknown Organization [facility] Address [address] [address]- Care Team Providers Care Hop Farmer Name Role Phone Bret ZAMBRANO, Kelley Primary Care Physician Encounter [facility] ACCT R [id number] Date(s): 01/31/22 - 03/02/22 [facility] [address] [place] [address] Attending Physician: Vijaya Parra Admitting Physician: AdmVijaya zapata Referring Physician: AdmtrVijaya Allergies, Adverse Reactions, Alerts Substance Reaction Severity Status phenothiazines Rash Active Tegretol LEUKOPENIA Active Keppra CONFUSED Active Dilantin Rash Moderate Active Cogentin CONFUSED Active Immunizations Given and Recorded Vaccine [...] See Instructions, # 1 each, Maintenance, AutoCPAP -17, 07/12/19 14:51:00 EST, Compound Start Date: 07/12/19 [...] Stop 03/09/22 10:00:00EDT, 03/14/21 10:00:00 EDT, Tablet, [facility]/pharmacy #[id number], 155, cm, 08/20/20 7:41:00 EST, Height, 77.2, kg, 08/20/20 7:41:00 EST, Dry Weight Start Date: 03/14/21 Stop Date: 03/09/22 Status: Ordered tamoxifen 20 mg oral tablet 1 tablet = 20 mg, By Mouth, Daily, # 90 tablet, 3 Refills, Maintenance, 03/09/22 10:00:00 EDT, Tablet, [facility]/pharmacy #[id number], 155, cm, 06/19/21 10:45:00 EST, [...] Status Never smoker entered on: 11/29/13 Sex Care Team Personnel Name: Kelley Qeuen MD Address: [address] [place] [address]
--- OUTSIDE RECORDS SUMMARY | 2023-05-01 21:51 | XMS_ITS | Continuity of Care Document ---
Author Name Unknown Organization [facility] Address [address] [place] [address]- Care Team Providers Care Rail Signal Mechanic Name Role Phone Rupesh ZAMBRANO, Olesya Carrillo Primary Care Physician Encounter [facility] Date(s): 01/19/20 - 02/29/[address] [address]- [facility] [phone] Attending Physician: Olesya Goddard MD Admitting Physician: Olesya Goddard MD Referring Physician: Olesya Goddard MD Allergies, Adverse Reactions, Alerts Substance Reaction Severity Status phenothiazines Rash Active Tegretol LEUKOPENIA Active Dilantin Rash Moderate Active Keppra CONFUSED Active Cogentin CONFUSED Active Immunizations Given and [...] Maintenance, 12/17/16 12:09:00, Route to Pharmacy Electronically, [id number], [facility]/pharmacy #[id number] Start Date: 12/17/16 Status: Ordered [...] tablet, 11 Refills, Maintenance, 06/20/19 9:20:44 EST, [facility]/pharmacy #[id number], 155, cm, 06/20/19 8:37:40 EST, Height [...] Refills, Aerosol Start Date: 12/25/10 Status: Ordered triamcinolone 0.025% topical cream 1 [...]
--- OUTSIDE RECORDS SUMMARY | 2023-05-01 21:51 | XMS_ITS | Continuity of Care Document ---
Author Name Unknown Organization [facility] Address [address] [place] [address]- Care Team Providers Care Tack Welder Name Role Phone Bret ZAMBRANO, Kelley Primary Care Physician ( [phone] [facility] Date(s): 05/29/21 - 06/28/[address] [address] Attending Physician: Vijaya Parra Admitting Physician: AdmtrVijaya Referring Physician: Admtr Ar8 Allergies, Adverse Reactions, Alerts Substance Reaction [...] Stop 03/09/22 10:00:00EDT, 03/14/21 10:00:00 EDT, Tablet, [facility]/pharmacy #[id number], 155, cm, 08/20/20 7:41:00 EST, Height, 77.2, kg, 08/20/20 7:41:00 EST, Dry Weight Start Date: 03/14/21 Stop Date: 03/09/22 Status: Ordered tamoxifen 20 mg oral tablet 1 tablet = 20 mg, By Mouth, Daily, # 90 tablet, 3 Refills, Maintenance, 03/09/22 10:00:00 EDT, Tablet, [facility]/pharmacy #[id number], 155, cm, 06/19/21 10:45:00 EST, Height, [...]
--- OUTSIDE RECORDS SUMMARY | 2023-05-01 21:51 | XMS_ITS | Continuity of Care Document ---
Author Name Unknown Organization [facility] Address [address] [place] [address]- Care Team Providers Care Central Lab Technician Name Role Phone Rupesh ZAMBRANO, Olesya Carrillo Primary Care Physician En[place] [facility] Date(s): 08/27/20 - 09/26/20 [facility] [address] [place] [address]- Allergies, Adverse Reactions, Alerts Substance Reaction Severity [...] See Instructions, # 1 each, Maintenance, AutoCPAP 12-, 07/12/19 14:51:00 EST, Compound Start Date: 07/12/19 [...] Stop 03/14/21 10:00:00EDT, 03/19/20 10:00:00 EDT, Tablet, [facility]/pharmacy #[id number], 158, cm, 03/19/20 9:15:00 EDT, Height, 78.1, kg, 03/19/20 9:15:00 EDT, Dry Weight Start Date: 03/19/20 Stop Date: 03/14/21 Status: Ordered tamoxifen 20 mg oral tablet 1 tablet = 20 mg, By Mouth, Daily, # 90 tablet, 3 Refills, Maintenance, 03/14/21 10:00:00 EDT, Tablet, [facility]/pharmacy #[id number], 155, cm, 08/20/20 7:41:00 EST, [...]
--- OUTSIDE RECORDS SUMMARY | 2023-05-01 21:51 | XMS_ITS | Continuity of Care Document ---
Author Name Unknown Organization [facility] Address [address] [place] [address]- Care Team Providers Care Leadership Development Manager Name Role Phone Rupesh ZAMBRANO, Olesya Carrillo Primary Care Physician [place] [facility] [place] 07/20/20 - 08/19/20 [facility] [address] [place] [address]- Attending Physician: Vijaya Parra Admitting Physician: AdmVijaya [...] opioid drug. Start Date: 08/10/20 Status: Ordered atorvastatin 10 mg oral tablet [...] 3 Refills, Maintenance, 03/19/20 10:00:00 EDT, Tablet, [facility]/pharmacy #[id number], 158, cm, 03/19/20 9:15:00 EDT, Height, [...]
--- OUTSIDE RECORDS SUMMARY | 2023-05-01 21:51 | XMS_ITS | Continuity of Care Document ---
Author Name Unknown Organization [facility] Address [address] [place] [address]- Care Team Providers Care Box Sealing Machine Operator Name Role Phone Bret ZAMBRANO, Kelley Primary Care Physician ( [phone] Encounter [facility] Date(s): 12/04/21 - 01/03/[address] [address] Attending Physician: Vijaya Parra Admitting Physician: AdmtrVijaya [...] Stop 03/09/22 10:00:00EDT, 03/14/21 10:00:00 EDT, Tablet, [facility]/pharmacy #[id number], 155, cm, 08/20/20 7:41:00 EST, Height, 77.2, kg, 08/20/20 7:41:00 EST, Dry Weight Start Date: 03/14/21 Stop Date: 03/09/22 Status: Ordered tamoxifen 20 mg oral tablet 1 tablet = 20 mg, By Mouth, Daily, # 90 tablet, 3 Refills, Maintenance, 03/09/22 10:00:00 EDT, Tablet, [facility]/pharmacy #[id number], 155, cm, 06/19/21 10:45:00 EST, [...]
--- OUTSIDE RECORDS SUMMARY | 2023-05-01 21:51 | XMS_ITS | Continuity of Care Document ---
Author Name Unknown Organization [facility] Address [address] [place] [address]- Care Team Providers Care Automotive Instructor Name Role Phone Kelley Queen MD Primary Care Physician Encounter [facility] [place] Date(s): 12/15/22 - 02/28/[address] [address]- Encounter Diagnosis Malignant neoplasm of upper-outer quadrant [...] A #2 5Admin Note: hep A#1 Medications aspirin 81 mg oral delayed release tablet 1 tablet = 81 mg, By Mouth, Daily, # 90 tablet, 0 Refills, Maintenance, 12/17/20 14:43:00 EDT, CR Tablet, Partial fill upon patient request if the prescription is for a schedule II opioid drug. Start Date: 12/17/20 Status: Ordered atorvastatin 20 mg oral tablet 1 tablet = 20 mg, By Mouth, Daily, # 90 tablet, 0 Refills, Maintenance, 12/29/22 9:30:00 EDT, Tablet, Partial fill upon patient request if the prescription is for a schedule II opioid drug. Start Date: 12/29/22 Status: Ordered CPAP Machine See Instructions, # 1 each, Maintenance, AutoCPAP 12-17, 07/12/19 14:51:00 EST, Compound Start Date: 07/12/19 Status: Ordered ferrous sulfate 324 mg (65 mg elemental iron) oral delayed release tablet 1 tablet = 324 mg, By Mouth, Daily, 0 Refills, Maintenance, 12/29/22 9:32:00 EDT, Partial fill uponpatient request if the prescription is for a schedule II opioid drug. Start Date: 12/29/22 Status: Ordered hydrochlorothiazide 25 mg oral tablet 25 mg, 1, tablet, By Mouth, Daily in AM, Refills 0, Maintenance, 02/17/20 10:01:00 EDT Start Date: 02/17/20 Status: Ordered levothyroxine 0.075 mg oral tablet 0 Refills, Maintenance, 12/29/22 9:30:00 EDT, Partial fill upon patient request if the prescriptionis for a schedule II opioid drug. Start Date: 12/29/22 Status: Ordered mirtazapine 15 mg oral tablet, disintegrating 1 tablet = 15 mg, By Mouth, Daily at bedtime, # 30 tablet, 0 Refills, Maintenance, 12/29/22 9:32:00EDT, DIS Tablet, Partial fill upon patient request if the prescription is for a schedule II opioid drug. Start Date: 12/29/22 Status: Ordered mirtazapine 30 mg oral tablet 2 tablet = 60 mg, By Mouth, Daily at bedtime, # 60 tablet, 5 Refills, Maintenance, 08/21/16 9:59:54, Tablet Start Date: 08/21/16 Status: Ordered Ofev 150 mg oral capsule 1 capsule = 150 mg, By Mouth, Every 12 hours, with food, # 60 capsule, 0 Refills, Maintenance, 12/29/22 9:31:00 EDT, Capsule, Partial fill upon patient request if the prescription is for a schedule II opioid drug. Start Date: 12/29/22 Status: Ordered pantoprazole 40 mg oral delayed release tablet 1 tablet, By Mouth, Daily, # 90 tablet, 3 Refills, Maintenance, 11/06/20 19:34:00 EDT, 155, cm, 10/26/20 8:30:00 EDT, Height, 77.2, kg, 08/20/20 7:41:00 EST, Dry Weight Start Date: 11/06/20 Status: Ordered Review of CPAP machine Review of CPAP machine, See Instructions, # 1 each, Refills 0, Tot. Refills 0, Maintenance, please check CPAP machine patient states it's malfunction Dx SARAH G47.33, 11/18/21 17:05:00 EDT, Supply Start Date: 11/18/21 Status: Ordered tamoxifen 20 mg oral tablet 1 tablet = 20 mg, By Mouth, Daily, # 90 tablet, 3 Refills, Maintenance, 02/27/24 10:00:00 EDT, Tablet, [facility]/pharmacy #[id number], 155, cm, 12/29/22 9:34:00 EDT, Height, 84.6, kg, 12/29/22 9:34:00 EDT, Dry Weight Start Date: 02/27/24 Stop Date: 02/21/25 Status: Ordered tamoxifen 20 mg oral tablet 1 tablet = 20 mg, By Mouth, Daily, for 90 days, # 90 tablet, 3 Refills, Hard Stop 03/04/23 10:00:00EDT, 03/09/22 10:00:00 EDT, Tablet, [id number], 155, cm, 06/19/21 10:45:00 EST, Height, 75,kg, 01/26/21 16:14:00 EDT, Dry Weight Start Date: 03/09/22 Stop Date: 03/04/23 Status: Ordered tamoxifen 20 mg oral tablet 1 tablet = 20 mg, By Mouth, Daily, for 90 days, # 90 tablet, 3 Refills, Hard Stop 02/27/24 10:00:00EDT, 03/04/23 10:00:00 EDT, Tablet, [id number], 155, cm, 12/16/21 10:01:00 EDT, Height, 87.9, kg, 12/16/21 10:01:00 EDT, Dry Weight Start Date: 03/04/23 Stop Date: 02/27/24 Status: Ordered Trelegy Ellipta 200 mcg-62.5 mcg-25 mcg/inh inhalation powder 1 puffs, Inhalation, Daily, at the same time every day, 0 Refills, Maintenance, 12/29/22 9:31:00 EDT, Powder, Partial fill upon patient request if the prescription is for a schedule II opioid drug. Start Date: 12/29/22 Status: Ordered triamcinolone 0.025% topical cream 1 application, Topically, 2 times a day, # 60 Gm, 0 Refills, Maintenance, 02/17/20 10:04:00 EDT, Cream Start Date: 02/17/20 Stop Date: 03/02/20 Status: Ordered Viibryd 20 mg oral tablet [...] Effective Dates Status Health St atus Informant SARAH on CPAP Confirmed Active Severe obesity (BMI 35.0-39.9) with comorbidity Confirmed Active Travel vaccinations Confirmed Active Vital Signs Most recent to oldest [Reference Range]: 1 Height 155 cm (12/29/22 9:34 AM) Weight 84.6 kg (12/29/22 9:34 AM) Oxygen Saturation [94-100 %] 94 % (12/29/22 9:34 AM) Pulse Rate [55-90 bpm] 81 bpm (12/29/22 9:34 AM) Body Mass Index [18.5-24.99 kg/m2] 35.21 kg/m2 *>HHI* (12/29/22 9:34 AM) Blood Pressure [90-138/55-84 mm Hg] 135/ 73mm Hg (12/29/22 9:34 AM) Respiratory Rate [16-30 br/min] 18 br/mi n (12/29/22 9:34 AM) Temperature [96.8-100.4 DegF] 97.9 DegF (12/29/22 9:34 AM) Liters per Minute 0 L/min (12/29/22 9:34 AM) Mode of Delivery (Oxygen) Room air (12/29/22 9:34 AM) Blood pressure sites Arm, left (12/29/22 9:34 AM) Temperature Route Oral (12/29/22 9:34 AM) Dry Weight 84.6 kg (12/29/22 9:34 AM) Weight Obtained Via Standing scale (12/29/22 9:34 AM) Dry Weight Obtained Via Standing scale (12/29/22 9:34 AM) Social History Social History Type Response Smoking Status Never smoker entered on: 11/29/13 Sex Note * Emani Johnson: PERFORM, SIGN, VERIFY Event Display: Patient Education/Instruction Authored Date: [id number] [facility] Oncology Clinical Summary Name NOELLE MILAN Age 77 Years 1945 PCP Kelley Queen MD PCP Visit Date 12/15/2022 14:07:00 Additional Instructions: Scheduled Appointments?? Future Appointments ?No Future Appointments Scheduled Follow-Up Instructions ?? Diagnosis Medications: Please continue your medications until treatment is completed or stopped by your provider. Discuss any questions related to medications with your provider. Medications to Continue with No Changes These medications were not printed or sent to your pharmacy Aspirin (aspirin 81 mg oral delayed release tablet) 1 tab(s) Oral Daily. Next Dose: Atorvastatin (atorvastatin 20 mg oral tablet) 1 tab(s) Oral Daily. Next Dose: Durable Medical Equipment (CPAP Machine) AutoCPAP 12-17. Refills: 0. Next Dose: Durable Medical Equipment (Review of CPAP machine) please check CPAP machine patient states it's malfunction Dx SARAH G47.33. Refills: 0. Next Dose: Ferrous Sulfate (ferrous sulfate 324 mg (65 mg elemental iron) oral delayed release tablet) 1 tab(s) Oral Daily. Next Dose: fluticasone/umeclidinium/vilanterol (Trelegy Ellipta 200 mcg-62.5 mcg-25 mcg/inh inhalation powder)1 puff(s) Inhalation Daily. at the same time every day. Next Dose: Hydrochlorothiazide (hydrochlorothiazide 25 mg oral tablet) 1 tab(s) Oral Daily in the morning. Next Dose: Levothyroxine (levothyroxine 0.075 mg oral tablet) Next Dose: Mirtazapine (mirtazapine 15 mg oral tablet, disintegrating) 1 tab(s) Oral Daily at Bedtime. Next Dose: Mirtazapine (mirtazapine 30 mg oral tablet) 2 tab(s) Oral Daily at Bedtime. Refills: 5. Next Dose: nintedanib (Ofev 150 mg oral capsule) 1 capsule Oral every 12 hours. with food. Next Dose: Pantoprazole (pantoprazole 40 mg oral delayed release tablet) 1 tab(s) Oral Daily. Refills: 3. Next Dose: Tamoxifen (tamoxifen 20 mg oral tablet) 1 tab(s) Oral Daily for 90 Days. Refills: 3. Next Dose: Tamoxifen (tamoxifen 20 mg oral tablet) 1 tab(s) Oral Daily for 90 Days. Refills: 3. Next Dose: Triamcinolone Topical (triamcinolone 0.025% topical cream) 1 vilma Topically twice a day for 14 Days. Next Dose: vilazodone (Viibryd 20 mg oral tablet) 1 tab(s) Oral Daily. take with one 40 mg tablet. Refills: 5. Next Dose: vilazodone (Viibryd 40 mg oral tablet) 1 tab(s) Oral Daily. take with one 20 mg tablet. Refills: 5. Next Dose: Allergy Info:?? Keppra; Cogentin; Dilantin; Tegretol; phenothiazines Medications Given This Visit Future Orders ?No future orders Vital Signs Height 155 cm Weight 84.6 kg BMI 35.21 kg/m2 Blood Pressure 135 mm Hg/73 mm Hg Temperature 97.9 DegF Pulse Rate 81 bpm Respiratory Rate 18 br/min 02 Sat Mode of Delivery 94 %/Room air You can now view a summary of your hospital visit from the comfort of your home through a free online portal called [employer]. [employer] is a website that allows you to securely view your medical information including discharge summary, medications and follow-up visits. ??You can alsosend a secure electronic message to your doctor???s office to request appointments, renew medications or just ask a question. You can enroll at [email or web address] or register during your next office [...] primary care provider, you may find a [facility] provider by calling [facility] Link at [phone]. For information about the plan of care [...] Care Team Personnel Name: Christi Sanchez Position: [facility] Outreach Member Role: Lifetime Consulting Physician Name: Kelley Queen MD Position: [facility] Outreach Member Role: PCP Address: Address: [address] [place] [address] Name: Deb Reynolds RN Position: [facility] Onco RN Member Role: Primary Care Nurse Care Team Related Persons Name: FRIEDA CONTRERAS Address: [place] [address] Name: RYAN CONTRERAS Address: [place] [address]
--- OUTSIDE RECORDS SUMMARY | 2023-05-01 21:51 | XMS_ITS | Continuity of Care Document ---
Author Name Unknown Organization [facility] Address [address] [place] [address]- Care Team Providers Care Implementation Lead Name Role Phone Olesya Goddard MD [id number] - 08[facility]17/20 [facility] [address] [place] [address]- Attending Physician: Lamonte Oliva DO Referring Physician: [...] 3 Refills, Maintenance, 03/19/20 10:00:00 EDT, Tablet, [facility]/pharmacy #[id number], 158, cm, 03/19/20 9:15:00 EDT, [...] recent to oldest [Reference Range]: 1 Height 150.8 cm (08/10/20 1:08 PM) Weight 78.03 kg (08/10/20 1:08 PM) Pulse Rate [55-90 bpm] 89 bpm (08/10/20 1:08 PM) Body Mass Index [18.5-24.99] 34.31 *>HHI* (08/10/20 1:08 PM) Blood Pressure [90-138/55-84 mm Hg] 152/ 80mm Hg *H* (08/10/20 1:08 PM) Respiratory Rate [16-30 br/min] 16 br/mi n (08/10/20 1:08 PM) Temperature [96.8-100.4 DegF] 97.6 DegF (08/10/20 1:08 PM) Blood pressure sites Arm, left (08/10/20 1:08 PM) Temperature Route Temporal (08/10/20 1:08 PM) Dry Weight 78.03 kg (08/10/20 1:08 PM) Weight Obtained Via Patient/family state d (08/10/20 1:08 PM) Social History Social History Type Response Smoking Status Never smoker entered on: 11/29/13 Sex
--- OUTSIDE RECORDS SUMMARY | 2023-05-01 21:51 | XMS_ITS | Continuity of Care Document ---
Author Name Unknown Organization [facility] Address [address] [place] [address]- Care Team Providers Care Manager People Name Role Phone Rupesh ZAMBRANO, Olesya Carrillo Primary Care Physician Encounter [facility] [place] Date(s): 08/07/20 - 09/06/20 [facility] [address] [place] [address]- Allergies, Adverse Reactions, Alerts Substance Reaction Severity [...] 3 Refills, Maintenance, 03/19/20 10:00:00 EDT, Tablet, [facility]/pharmacy #[id number], 158, cm, 03/19/20 9:15:00 EDT, [...]
--- OUTSIDE RECORDS SUMMARY | 2023-05-01 21:52 | XMS_ITS | Continuity of Care Document ---
Author Name Unknown Organization [facility] Address [address] [place] [address]- Care Team Providers Care Snout Puller Name Role Phone Rupesh ZAMBRANO, Olesya Carrillo Primary Care Physician [place] [facility] 10/19/20 - 11/18/20 [facility] [address] [place] [address]- Allergies, Adverse Reactions, Alerts Substance Reaction Severity [...] Stop 03/14/21 10:00:00EDT, 03/19/20 10:00:00 EDT, Tablet, [facility]/pharmacy #[id number], 158, cm, 03/19/20 9:15:00 EDT, Height, 78.1, kg, 03/19/20 9:15:00 EDT, Dry Weight Start Date: 03/19/20 Stop Date: 03/14/21 Status: Ordered tamoxifen 20 mg oral tablet 1 tablet = 20 mg, By Mouth, Daily, # 90 tablet, 3 Refills, Maintenance, 03/14/21 10:00:00 EDT, Tablet, [facility]/pharmacy #[id number], 155, cm, 08/20/20 7:41:00 EST, [...]
--- OUTSIDE RECORDS SUMMARY | 2023-05-01 21:52 | XMS_ITS | Continuity of Care Document ---
Author Name Unknown Organization [facility] Address [address] [place] [address]- Care Team Providers Care Unit Nurse Name Role Phone Bret ZAMBRANO, Kelley Primary Care Physician Encounter [facility] [place] Date(s): 05/29/21 - 08/19/[address] [address]- Encounter Diagnosis Malignant neoplasm of upper-outer quadrant of right female breast(Final) - Discharge Disposition: A-D/C Home Attending Physician: Ruby Quispe MD Admitting Physician: Ruby Quispe MD Referring Physician: Not on Staff, Referring MD [...] Stop 03/09/22 10:00:00EDT, 03/14/21 10:00:00 EDT, Tablet, [facility]/pharmacy #[id number], 155, cm, 08/20/20 7:41:00 EST, Height, 77.2, kg, 08/20/20 7:41:00 EST, Dry Weight Start Date: 03/14/21 Stop Date: 03/09/22 Status: Ordered tamoxifen 20 mg oral tablet 1 tablet = 20 mg, By Mouth, Daily, # 90 tablet, 3 Refills, Maintenance, 03/09/22 10:00:00 EDT, Tablet, [facility]/pharmacy #[id number], 155, cm, 06/19/21 10:45:00 EST, [...] oldest [Reference Range]: 1 Height 155 cm (06/19/21 10:45 AM) Oxygen Saturation [94-100 %] 97 % (06/19/21 10:45 AM) Pulse Rate [55-90 bpm] 97 bpm *H* (06/19/21 10:45 AM) Blood Pressure [90-138/55-84 mm Hg] 139/ 72mm Hg *H* (06/19/21 10:45 AM) Respiratory Rate [16-30 br/min] 18 br/mi n (06/19/21 10:45 AM) Temperature [96.8-100.4 DegF] 97 DegF (06/19/21 10:45 AM) Mode of Delivery (Oxygen) Room air (06/19/21 10:45 AM) Social History Social History Type Response Smoking Status Never smoker entered on: 11/29/13 Sex
--- OUTSIDE RECORDS SUMMARY | 2023-05-01 21:52 | XMS_ITS | Continuity of Care Document ---
Author Name Unknown Organization [facility] Address [address] [place] [address]- Care Team Providers Care Transitions Rn Care Coordinator Name Role Phone Yassine Harmon MD Primary Care Physician Encounter [facility] [place] Date(s): 06/20/19 - 06/30/19 [facility] [address] [place] [address]- [facility] Attending Physician: Vijaya Parra Admitting Physician: Vijaya Parra Referring Physician: AdmtrVijaya Allergies, Adverse Reactions, Alerts [...] Maintenance, 12/17/16 12:09:00, Route to Pharmacy Electronically, [id number], [facility]/pharmacy #[id number] Start Date: 12/17/16 Status: Ordered [...] tablet, 11 Refills, Maintenance, 06/20/19 9:20:44 EST, [facility]/pharmacy #[id number], 155, cm, 06/20/19 8:37:40 EST, [...] Replace Required Details, Route to Pharmacy Electronically, [id number], [facility]/pharmacy #[id number] Start Date: 10/14/16 Status: Ordered [...]
--- OUTSIDE RECORDS SUMMARY | 2023-05-01 21:52 | XMS_ITS | Continuity of Care Document ---
Author Name Unknown Organization [facility] Address [address] [place] [address]- Care Team Providers Care Artificial Breeding Ranch Supervisor Name Role Phone Rupesh ZAMBRANO, Olesya Carrillo Primary Care Physician [phone] Encounter [facility] [place] Date(s): 03/16/20 - 03/23/20 [facility] [address] [place] [address]- [facility] Attending Physician: Lamonte Oliva DO Referring Physician: [...] Maintenance, 12/17/16 12:09:00, Route to Pharmacy Electronically, [id number], [facility]/pharmacy #[id number] Start Date: 12/17/16 Status: Ordered atorvastatin 10 [...] tablet, 11 Refills, Maintenance, 06/20/19 9:20:44 EST, [facility]/pharmacy #[id number], 155, cm, 06/20/19 8:37:40 EST, [...] 3 Refills, Maintenance, 03/19/20 10:00:00 EDT, Tablet, [facility]/pharmacy #[id number], 158, cm, 03/19/20 9:15:00 EDT, [...] oldest [Reference Range]: 1 Height 158 cm (03/16/20 3:08 PM) Pulse Rate [55-90 bpm] 88 bpm (03/16/20 3:08 PM) Blood Pressure [90-138/55-84 mm Hg] 139/ 74mm Hg *H* (03/16/20 3:08 PM) Temperature [96.8-100.4 DegF] 97.6 DegF (03/16/20 3:08 PM) Blood pressure sites Arm, left (03/16/20 3:08 PM) Temperature Route Temporal (03/16/20 3:08 PM) Social History Social History Type Response Smoking Status Never smoker entered on: 11/29/13 Sex
--- OUTSIDE RECORDS SUMMARY | 2023-05-01 21:52 | XMS_ITS | Continuity of Care Document ---
Author Name Unknown Organization [facility] Address [address] [place] [address]- Care Team Providers Care Equalizing Saw Operator Name Role Phone Rupesh ZAMBRANO, Olesya Carrillo Primary Care Physician Encounter [facility] [place] Date(s): 03/08/20 - 04/07/20 [facility] [address] [place] [address]- [facility] Attending Physician: Vijaya Parra Admitting Physician: Vijaya [...] Maintenance, 12/17/16 12:09:00, Route to Pharmacy Electronically, [id number], [facility]/pharmacy #[id number] Start Date: 12/17/16 [...] 07/05/20 8:47:00 EST, 04/04/20 8:46:00 EDT, Cream, [facility]/pharmacy #[id number], 1 application Topically twicedaily; apply [...] 3 Refills, Maintenance, 03/19/20 10:00:00 EDT, Tablet, [facility]/pharmacy #1094, 158, cm, 03/19/20 [...]
--- OUTSIDE RECORDS SUMMARY | 2023-05-01 21:52 | XMS_ITS | Continuity of Care Document ---
Author Name Unknown Organization [facility] Address [address] [place] [address]- Care Team Providers Care Weapons Officer Name Role Phone Rupesh ZAMBRANO, Olesya Carrillo Primary Care Physician Encounter [facility] Date(s): 02/21/20 - 02/21/[address] [address]- [facility] Discharge Disposition: A-D/C Home Attending Physician: Lamonte Oliva DO Admitting Physician: Lamonte Oliva DO Referring Physician: Lamonte Oliva DO Allergies, Adverse Reactions, Alerts Substance Reaction Severity [...] Maintenance, 12/17/16 12:09:00, Route to Pharmacy Electronically, [id number], [facility]/pharmacy #[id number] Start Date: 12/17/16 Status: [...] tablet, 11 Refills, Maintenance, 06/20/19 9:20:44 EST, [facility]/pharmacy #[id number], 155, cm, 06/20/19 8:37:40 [...] Most recent to oldest [Reference Range]: 1 2 3 Height 154.94 cm (02/21/20 8:46 AM) 154.94 cm (02/17/20 9:53 AM) Weight 75.00 kg (02/21/20 8:46 AM) 75.00 kg (02/17/20 9:53 AM) Oxygen Saturation [94-100 %] 99 % (02/21/20 2:30 PM) 96 % (02/21/20 2:15 PM) 97 % (02/21/20 2:00 PM) Pulse Rate [55-90 bpm] 83 bpm (02/21/20 8:46 AM) Body Mass Index [18.5-24.99] 31.24 *>HHI* (02/21/20 8:46 AM) 31.24 *>HHI* (02/17/20 9:53 AM) Blood Pressure [90-138/55-84 mm Hg] 141/69mm Hg *H* (02/21/20 2:30 PM) 129/68mm Hg (02/21/20 2:21 PM) 146/63mm Hg *H* (02/21/20 2:15 PM) Respiratory Rate [16-30 br/min] 16 br/min (02/21/20 2:30 PM) 30 br/min (02/21/20 2:15 PM) 20 br/min (02/21/20 2:00 PM) Temperature [96.8-100.4 DegF] 98.0 DegF (02/21/20 1:45 PM) 97.9 DegF (02/21/20 8:46 AM) Liters per Minute 4 L/min (02/21/20 1:45 PM) Mode of Delivery (Oxygen) Room air (02/21/20 2:15 PM) Simple face mask (02/21/20 1:45 PM) Room air (02/21/20 8:46 AM) Blood pressure sites Arm, left (02/21/20 2:30 PM) Arm, left (02/21/20 2:21 PM) Arm, left (02/21/20 2:15 PM) Temperature Route Temporal (02/21/20 1:45 PM) Temporal (02/21/20 8:46 AM) Dry Weight 75.00 kg (02/17/20 9:53 AM) Weight Obtained Via Patient/family state d (02/17/20 9:53 AM) Dry Weight Obtained Via Patient/family s tated (02/17/20 9:53 AM) Social History Social History Type Response Smoking Status Never smoker entered on: 11/29/13 Sex
--- OUTSIDE RECORDS SUMMARY | 2023-05-01 21:52 | XMS_ITS | Continuity of Care Document ---
Author Name Unknown Organization [facility] Address [address] [place] [address]- Care Team Providers Care Supervisor Vendor Quality Name Role Phone Rupesh ZAMBRANO, Olesya Carrillo Primary Care Physician Encounter [facility] [place] Date(s): 06/04/20 - 07/04/20 [facility] [address] [place] [id number] Allergies, Adverse Reactions, Alerts Substance [...] Maintenance, 12/17/16 12:09:00, Route to Pharmacy Electronically, [id number], [facility]/pharmacy #[id number] Start Date: 12/17/16 Status: Ordered atorvastatin 10 [...] 07/05/20 8:47:00 EST, 04/04/20 8:46:00 EDT, Cream, [facility]/pharmacy #[id number], 1 application Topically twicedaily; apply [...] 3 Refills, Maintenance, 03/19/20 10:00:00 EDT, Tablet, [facility]/pharmacy #1094, 158, cm, 03/19/20 9:15:00 EDT, [...]
--- OUTSIDE RECORDS SUMMARY | 2023-05-01 21:52 | XMS_ITS | Continuity of Care Document ---
Author Name Unknown Organization [facility] Address [address] [place] [address]- Care Team Providers Care Park Landscape Architect Name Role Phone Bret ZAMBRANO, Kelley Primary Care Physician Encounter [facility] [place] Date(s): 11/21/20 - 12/21/20 [facility] [address] [place] [id number] Allergies, Adverse Reactions, Alerts Substance Reaction [...] Stop 03/14/21 10:00:00EDT, 03/19/20 10:00:00 EDT, Tablet, [facility]/pharmacy #[id number], 158, cm, 03/19/20 9:15:00 EDT, Height, 78.1, kg, 03/19/20 9:15:00 EDT, Dry Weight Start Date: 03/19/20 Stop Date: 03/14/21 Status: Ordered tamoxifen 20 mg oral tablet 1 tablet = 20 mg, By Mouth, Daily, # 90 tablet, 3 Refills, Maintenance, 03/14/21 10:00:00 EDT, Tablet, [facility]/pharmacy #[id number], 155, cm, 08/20/20 7:41:00 EST, [...]
--- OUTSIDE RECORDS SUMMARY | 2023-05-01 21:52 | XMS_ITS | Continuity of Care Document ---
Author Name Unknown Organization [facility] Address [address] [place] [address]- Care Team Providers Care Biomedical Field Service Engineer Name Role Phone Rupesh ZAMBRANO, Olesya Carrillo Primary Care Physician Encounter [facility] [place] Date(s): 03/01/20 - 03/07/20 [facility] [address] [place] [address]- [facility] Discharge Disposition: A-D/C Home Attending Physician: Mile Davis MD Admitting Physician: Betsey Gutierrez MD Referring Physician: Lamonte Oliva DO Allergies, Adverse [...] Maintenance, 12/17/16 12:09:00, Route to Pharmacy Electronically, [id number], [facility]/pharmacy #[id number] Start Date: 12/17/16 Status: Ordered atorvastatin 10 mg oral tablet 1 tablet = 10 mg, By Mouth, Daily in AM, 0 Refills, Maintenance, 07/12/19 13:52:00 EST Start Date: 07/12/19 Status: Ordered Bactrim DS 800 mg-160 mg oral tablet 1 tablet, By Mouth, 2 times a day, # 14 tablet, 0 Refills, Acute 03/13/20 11:29:00 EDT, 03/06/20 11:29:00 EDT, Tablet, [facility]/pharmacy #[id number], 1 tablet By Mouth 2 times a day, 154.94, cm, 03/06/20 10:40:00 EDT, Height, 75, kg, 02/17/20 9:53:00 EDT, Dry We... Start Date: 03/06/20 Stop Date: 03/13/20 Status: Ordered CPAP Machine See Instructions, # 1 each, Maintenance, AutoCPAP 06-21, 07/12/19 14:51:00 EST, Compound Start Date: 07/12/19 [...] tablet, 11 Refills, Maintenance, 06/20/19 9:20:44 EST, [facility]/pharmacy #[id number], 155, cm, 06/20/19 8:37:40 EST, Height [...]
--- OUTSIDE RECORDS SUMMARY | 2023-05-01 21:52 | XMS_ITS | Continuity of Care Document ---
Author Name Unknown Organization [facility] Address [address] [place] [address]- Care Team Providers Care Water And Sewer Systems Supervisor Name Role Phone Olesya Goddard MD Primary Care Physician [phone] [place] [facility] [place] - 03/13/20 [facility] [address] [place] [address]- [facility] Attending Physician: Lamonte Oliva DO Admitting Physician: Lamonte Oliva DO Referring Physician: Olesya [...] Maintenance, 12/17/16 12:09:00, Route to Pharmacy Electronically, [id number], [facility]/pharmacy #[id number] Start Date: 12/17/16 Status: [...] tablet, 11 Refills, Maintenance, 06/20/19 9:20:44 EST, [facility]/pharmacy #[id number], 155, cm, 06/20/19 8:37:40 EST, [...] recent to oldest [Reference Range]: 1 Height 154.94 cm (03/06/20 10:40 AM) Oxygen Saturation [94-100 %] 98 % (03/06/20 10:40 AM) Pulse Rate [55-90 bpm] 67 bpm (03/06/20 10:40 AM) Respiratory Rate [16-30 br/min] 16 br/mi n (03/06/20 10:40 AM) Mode of Delivery (Oxygen) Room air (03/06/20 10:40 AM) Social History Social History Type Response Smoking Status Never smoker entered on: 11/29/13 Sex
--- OUTSIDE RECORDS SUMMARY | 2023-05-01 21:52 | XMS_ITS | Continuity of Care Document ---
Author Name Unknown Organization [facility] Address [address] [place] [address]- Care Team Providers Care Furniture Mover Name Role Phone Rupesh ZAMBRANO, Olesya Carrillo Primary Care Physician Encounter [facility] [place] Date(s): 02/03/20 - 02/10/20 [facility] [address] [place] [address]- [facility] Attending Physician: Lamonte Oliva DO Referring Physician: Pérez Gudino MD Allergies, Adverse Reactions, Alerts Substance Reaction [...] Maintenance, 12/17/16 12:09:00, Route to Pharmacy Electronically, [id number], [facility]/pharmacy #[id number] Start Date: 12/17/16 Status: Ordered atorvastatin 10 [...] tablet, 11 Refills, Maintenance, 06/20/19 9:20:44 EST, [facility]/pharmacy #[id number], 155, cm, 06/20/19 8:37:40 EST, [...] Replace Required Details, Route to Pharmacy Electronically, [id number], [facility]/pharmacy #[id number] Start Date: 10/14/16 Status: Ordered [...] oldest [Reference Range]: 1 Height 155 cm (02/03/20 1:07 PM) Weight 80.1 kg (02/03/20 1:07 PM) Pulse Rate [55-90 bpm] 88 bpm (02/03/20 1:07 PM) Body Mass Index [18.5-24.99] 33.34 *>HHI* (02/03/20 1:07 PM) Blood Pressure [90-138/55-84 mm Hg] 143/ 70mm Hg *H* (02/03/20 1:07 PM) Respiratory Rate [16-30 br/min] 16 br/mi n (02/03/20 1:07 PM) Temperature [96.8-100.4 DegF] 99.3 DegF (02/03/20 1:07 PM) Blood pressure sites Arm, left (02/03/20 1:07 PM) Temperature Route Temporal (02/03/20 1:07 PM) Dry Weight 80.1 kg (02/03/20 1:07 PM) Weight Obtained Via Standing scale (02/03/20 1:07 PM) Dry Weight Obtained Via Standing scale (02/03/20 1:07 PM) Social History Social History Type Response Smoking Status Never smoker entered on: 11/29/13 Sex
--- OUTSIDE RECORDS SUMMARY | 2023-05-01 21:52 | XMS_ITS | Continuity of Care Document ---
Author Name Unknown Organization [facility] Address [address] [place] [address]- Care Team Providers Care Ceramics Test Engineer Name Role Phone Rupesh ZAMBRANO, Olesya Carrillo Primary Care Physician [place] [facility] [place] Date(s): 12/14/19 - 01/21/[address] [address]- [place] [phone] Attending Physician: Olesya Goddard MD Admitting Physician: [...] Maintenance, 12/17/16 12:09:00, Route to Pharmacy Electronically, [id number], [facility]/pharmacy #[id number] Start Date: 12/17/16 Status: Ordered atorvastatin [...] tablet, 11 Refills, Maintenance, 06/20/19 9:20:44 EST, [facility]/pharmacy #[id number], 155, cm, 06/20/19 8:37:40 EST, Height [...] Replace Required Details, Route to Pharmacy Electronically, [id number], [facility]/pharmacy #[id number] Start Date: 10/14/16 Status: Ordered Triamcinolone [...]
--- OUTSIDE RECORDS SUMMARY | 2023-05-01 21:52 | XMS_ITS | Continuity of Care Document ---
Author Name Unknown Organization [facility] Address [address] [place] [address]- Care Team Providers Care Gas Brazer Name Role Phone Olesya Goddard MD Primary Care Physician [phone] [id number]06[facility] [address] [place] [address]- [facility] Attending Physician: Lamonte Oliva DO Referring Physician: [...] Maintenance, 12/17/16 12:09:00, Route to Pharmacy Electronically, [id number], [facility]/pharmacy #[id number] Start Date: 12/17/16 Status: Ordered atorvastatin [...] 07/05/20 8:47:00 EST, 04/04/20 8:46:00 EDT, Cream, [facility]/pharmacy #[id number], 1 application Topically twicedaily; apply a thin [...] Maintenance, 03/19/20 10:00:00 EDT, Tablet, [facility]/pharmacy #[id number], 158, cm, 03/19/20 9:15:00 EDT, Height, [...] oldest [Reference Range]: 1 Height 150.8 cm (03/30/20 1:03 PM) Pulse Rate [55-90 bpm] 97 bpm *H* (03/30/20 1:03 PM) Blood Pressure [90-138/55-84 mm Hg] 139/ 74mm Hg *H* (03/30/20 1:03 PM) Blood pressure sites Arm, left (03/30/20 1:03 PM) Social History Social History Type Response Smoking Status Never smoker entered on: 11/29/13 Sex
--- OUTSIDE RECORDS SUMMARY | 2023-05-01 21:52 | XMS_ITS | Continuity of Care Document ---
Author Name Unknown Organization [facility] Address [address] [place] [address]- Care Team Providers Care Candle Molder Machine Name Role Phone Olesya Goddard MD Primary Care Physician En[place] [facility] [place] Date(s): 03/13/20 - 04/15/20 [facility] [address] [place] [address]- [facility] Attending Physician: Lamonte Oliva DO Admitting [...] Maintenance, 12/17/16 12:09:00, Route to Pharmacy Electronically, [id number], [facility]/pharmacy #[id number] Start Date: 12/17/16 [...] EST, 04/04/20 8:46:00 EDT, Cream, [facility]/pharmacy #[id number], 1 application Topically twicedaily; apply a [...] Maintenance, 03/19/20 10:00:00 EDT, Tablet, [facility]/pharmacy #[id number], 158, cm, 03/19/20 9:15:00 [...]
--- OUTSIDE RECORDS SUMMARY | 2023-05-01 21:52 | XMS_ITS | Continuity of Care Document ---
Author Name Unknown Organization [facility] Address [address] [place] [address]- Care Team Providers Care Purchasing Manager Name Role Phone Bret ZAMBRANO, Kelley Primary Care Physician ( [phone] Encounter [facility] [place] Date(s): 01/26/21 - 01/26/[address] [address]- Discharge Disposition: A-D/C Home Attending Physician: Jairo Phan MD Admitting Physician: Jairo Phan MD Referring Physician: Not on Staff, Referring [...] SARAH on CPAP(Confirmed) Active Travel vaccinations(Confirmed) Active Results Radiology Reports * Exam Date Time Procedure Performing Provider Status 01/26/21 6:44 PM Knee 1 or 2 Views Left Radha Brownlee; Auth (Verified) Notes: (Knee 1 or 2 Views Left) Reason For Exam: Pain RESULT: Knee 1 or 2 Views Left Knee 1 or 2 Views Left CLINICAL INDICATION: Hx of Present Illness: Since Thursday with increasing L knee pain weakness, worse with activity weight-bearing. No trauma or injury, hx arthritis. Subjective report of edema. Moderate relief with tylenol.; Reason: Pain; Clinical Question(s): Arthritis COMPARISONS: None TECHNIQUE: AP and crosstable lateral views of the left knee were obtained. FINDINGS: There is mild-moderate tricompartmental joint space narrowing most pronounced within the patellofemoral compartment. There is faint meniscal chondrocalcinosis. There are prominent lateral joint line osteophytes. Degenerative spurring noted at the upper and lower pole of the patella. No fracture or dislocation. A small joint effusion is seen on the lateral view. The patella is normally positioned. IMPRESSION: Mild-moderate tricompartmental osteoarthritis and small joint effusion. Meniscal chondrocalcinosis likely due to osteoarthritis. No fracture or dislocation. WSN: [id number] Ordering Physician: Jairo Phan Dictated By: Jimbo Kessler MD Dictated Date/Time: 01/26/21 6:51 pm Reviewed By: Jimbo Keslser MD Signed By: Jimbo Kessler MD Signed Date/Time: 01/26/21 6:51 pm Transcribed By: JAMARI Transcribed Date/Time: 01/26/21 6:50 pm Vital Signs Most recent to oldest [Reference Range]: 1 Height 155 cm (01/26/21 4:14 PM) Weight 75 kg (01/26/21 4:14 PM) Oxygen Saturation [94-100 %] 96 % (01/26/21 4:14 PM) Pulse Rate [55-90 bpm] 117 bpm *H* (01/26/21 4:14 PM) Blood Pressure [90-138/55-84 mm Hg] 154/ 89mm Hg *H* (01/26/21 4:14 PM) Respiratory Rate [16-30 br/min] 20 br/mi n (01/26/21 4:14 PM) Temperature [96.8-100.4 DegF] 99.0 DegF (01/26/21 4:14 PM) Mode of Delivery (Oxygen) Room air (01/26/21 4:14 PM) Blood pressure sites Arm, right (01/26/21 4:14 PM) Temperature Route Oral (01/26/21 4:14 PM) Dry Weight 75 kg (01/26/21 4:14 PM) Social History Social History Type Response Smoking Status Never smoker entered on: 11/29/13 Sex
--- OUTSIDE RECORDS SUMMARY | 2023-05-01 21:52 | XMS_ITS | Continuity of Care Document ---
Author Name Unknown Organization [facility] Address [address] [facility] [place] [address]- Care Team Providers Care Aircraft Instrument Repairer Name Role Phone Rupesh ZAMBRANO, Olesya Carrillo Primary Care Physician [phone] [place] [facility] [place] 03/22/20 - 04/21/20 [facility] [address] [place] [address]- [facility] Attending Physician: Vijaya Parra Admitting Physician: AdmVijaya zapata Referring Physician: Admtr, Vijaya Allergies, Adverse Reactions, Alerts Substance Reaction Severity [...] Maintenance, 12/17/16 12:09:00, Route to Pharmacy Electronically, [id number], [facility]/pharmacy #[id number] Start Date: 12/17/16 Status: Ordered [...] 07/05/20 8:47:00 EST, 04/04/20 8:46:00 EDT, Cream, [facility]/pharmacy #[id number], 1 application Topically twicedaily; apply [...] 3 Refills, Maintenance, 03/19/20 10:00:00 EDT, Tablet, [facility]/pharmacy #[id number], 158, cm, 03/19/20 9:15:00 EDT, [...]
--- OUTSIDE RECORDS SUMMARY | 2023-05-01 21:52 | XMS_ITS | Continuity of Care Document ---
Author Name Unknown Organization [facility] Address [address] [place] [address]- Care Team Providers Care Mechanical Pencils Assembler Name Role Phone Rupesh ZAMBRANO, Olesya Carirllo Primary Care Physician [phone] En[place] [facility] [place] Date(s): 08/27/20 - 09/26/20 [facility] [address] [place] [address]- Allergies, Adverse Reactions, Alerts Substance Reaction Severity [...] Stop 03/14/21 10:00:00EDT, 03/19/20 10:00:00 EDT, Tablet, [facility]/pharmacy #[id number], 158, cm, 03/19/20 9:15:00 EDT, Height, 78.1, kg, 03/19/20 9:15:00 EDT, Dry Weight Start Date: 03/19/20 Stop Date: 03/14/21 Status: Ordered tamoxifen 20 mg oral tablet 1 tablet = 20 mg, By Mouth, Daily, # 90 tablet, 3 Refills, Maintenance, 03/14/21 10:00:00 EDT, Tablet, [facility]/pharmacy #[id number], 155, cm, 08/20/20 7:41:00 EST, [...]
--- OUTSIDE RECORDS SUMMARY | 2023-05-01 21:52 | XMS_ITS | Continuity of Care Document ---
Author Name Unknown Organization [facility] Address [address] [place] [address]- Care Team Providers Care Road Design Engineer Name Role Phone Bret ZAMBRANO, Kelley Primary Care Physician En[place] [facility] [place] Date(s): 12/11/20 - 01/10/[address] [address] Allergies, Adverse Reactions, Alerts Substance [...] 03/14/21 10:00:00EDT, 03/19/20 10:00:00 EDT, Tablet, [facility]/pharmacy #[id number], 158, cm, 03/19/20 9:15:00 EDT, Height, 78.1, kg, 03/19/20 9:15:00 EDT, Dry Weight Start Date: 03/19/20 Stop Date: 03/14/21 Status: Ordered tamoxifen 20 mg oral tablet 1 tablet = 20 mg, By Mouth, Daily, # 90 tablet, 3 Refills, Maintenance, 03/14/21 10:00:00 EDT, Tablet, [facility]/pharmacy #[id number], 155, cm, 08/20/20 7:41:00 EST, [...]
--- OUTSIDE RECORDS SUMMARY | 2023-05-01 21:52 | XMS_ITS | Continuity of Care Document ---
Author Name Unknown Organization [facility] Address [address] [place] [address]- Care Team Providers Care Upholstery Trimmer Name Role Phone Rupesh ZAMBRANO, Olesya Carrillo Primary Care Physician [place] [facility] [place] 08/27/20 - 09/26/[address] [address] Allergies, Adverse Reactions, Alerts Substance Reaction [...] Stop 03/14/21 10:00:00EDT, 03/19/20 10:00:00 EDT, Tablet, [facility]/pharmacy #[id number], 158, cm, 03/19/20 9:15:00 EDT, Height, 78.1, kg, 03/19/20 9:15:00 EDT, Dry Weight Start Date: 03/19/20 Stop Date: 03/14/21 Status: Ordered tamoxifen 20 mg oral tablet 1 tablet = 20 mg, By Mouth, Daily, # 90 tablet, 3 Refills, Maintenance, 03/14/21 10:00:00 EDT, Tablet, [facility]/pharmacy #[id number], 155, cm, 08/20/20 7:41:00 EST, [...]
--- OUTSIDE RECORDS SUMMARY | 2023-05-01 21:52 | XMS_ITS | Continuity of Care Document ---
Author Name Unknown Organization [facility] Address [address] [place] [address]- Care Team Providers Care Poker Room Manager Name Role Phone Olesya Goddard MD Primary Care Physician [phone] [id number] Date(s): 02/13/20 - 03/29/20 [facility] [address] [place] [address]- [facility] Attending Physician: Sonali Grijalva NP Referring Physician: Olesya Goddard MD Allergies, Adverse [...] Maintenance, 12/17/16 12:09:00, Route to Pharmacy Electronically, [id number], [facility]/pharmacy #[id number] Start Date: 12/17/16 Status: Ordered atorvastatin [...] tablet, 11 Refills, Maintenance, 06/20/19 9:20:44 EST, [facility]/pharmacy #[id number], 155, cm, 06/20/19 8:37:40 EST, Height [...] 3 Refills, Maintenance, 03/19/20 10:00:00 EDT, Tablet, [facility]/pharmacy #[id number], 158, cm, 03/19/20 9:15:00 EDT, Height, [...]
--- OUTSIDE RECORDS SUMMARY | 2023-05-01 21:52 | XMS_ITS | Continuity of Care Document ---
Author Name Unknown Organization [facility] Address [address] [facility] [place] [address]- Care Team Providers Care Airborne Sensor Specialist Name Role Phone Rupesh ZAMBRANO, Olesya Carrillo Primary Care Physician [phone] Encounter [facility] [place] Date(s): 03/19/20 - 04/18/20 [facility] [address] [place] [address]- [facility] Allergies, Adverse Reactions, Alerts Substance Reaction Severity [...] Maintenance, 12/17/16 12:09:00, Route to Pharmacy Electronically, [id number], [facility]/pharmacy #[id number] Start Date: 12/17/16 Status: Ordered atorvastatin 10 [...] 07/05/20 8:47:00 EST, 04/04/20 8:46:00 EDT, Cream, [facility]/pharmacy #[id number], 1 application Topically twicedaily; apply a [...] 3 Refills, Maintenance, 03/19/20 10:00:00 EDT, Tablet, [facility]/pharmacy #[id number], 158, cm, 03/19/20 9:15:00 [...]
--- OUTSIDE RECORDS SUMMARY | 2023-05-01 21:52 | XMS_ITS | Continuity of Care Document ---
Author Name Unknown Organization [facility] Address [address] [place] [address]- Care Team Providers Care Personal Lines Advisor Name Role Phone Rupesh ZAMBRANO, Olesya Carrillo Primary Care Physician [place] [facility] [place] Date(s): 09/10/20 - 10/10/20 [facility] [address] [place] [address]- Allergies, Adverse Reactions, Alerts Substance Reaction Severity [...] Stop 03/14/21 10:00:00EDT, 03/19/20 10:00:00 EDT, Tablet, [facility]/pharmacy #[id number], 158, cm, 03/19/20 9:15:00 EDT, Height, 78.1, kg, 03/19/20 9:15:00 EDT, Dry Weight Start Date: 03/19/20 Stop Date: 03/14/21 Status: Ordered tamoxifen 20 mg oral tablet 1 tablet = 20 mg, By Mouth, Daily, # 90 tablet, 3 Refills, Maintenance, 03/14/21 10:00:00 EDT, Tablet, [facility]/pharmacy #[id number], 155, cm, 08/20/20 7:41:00 EST, Height, [...]
--- OUTSIDE RECORDS SUMMARY | 2023-05-01 21:52 | XMS_ITS | Continuity of Care Document ---
Author Name Unknown Organization [facility] Address [address] [place] [address]- Care Team Providers Care Tip Bander Name Role Phone Olesya Goddard MD Primary Care Physician [phone] [place] [facility] [place] 07[place]27/20 [facility] [address] [place] [address]- Attending Physician: Merna Hardy MD Admitting Physician: Merna Hardy MD Referring Physician: Olesya Goddard MD Allergies, [...] Maintenance, 12/17/16 12:09:00, Route to Pharmacy Electronically, [id number], [facility]/pharmacy #[id number] Start Date: 12/17/16 [...] 9:59:54, Tablet Start Date: 08/21/16 Status: Ordered predniSONE 20 mg oral tablet [...]
--- OUTSIDE RECORDS SUMMARY | 2023-05-01 21:52 | XMS_ITS | Continuity of Care Document ---
Author Name Unknown Organization [facility] Address [address] [place] [address]- Care Team Providers Care Hydraulic Auto Jack Mechanic Name Role Phone Olesya Goddard MD Primary Care Physician [id number] Date(s[facility] 03/06/20 - 04/07/20 [facility] [address] [place] [address]- [facility] Attending Physician: Lamonte Oliva DO Admitting Physician: Lamonte Oliva DO Referring Physician: Not on Staff, Referring [...] Maintenance, 12/17/16 12:09:00, Route to Pharmacy Electronically, [id number], [facility]/pharmacy #1094 Start [...]
--- OUTSIDE RECORDS SUMMARY | 2023-05-01 21:52 | XMS_ITS | Continuity of Care Document ---
Author Name Unknown Organization [facility] Address [address] [place] [address]- Care Team Providers Care Exercise Specialist Name Role Phone Rupesh ZAMBRANO, Olesya Carrillo Primary Care Physician En[place] [facility] [place] Date(s): 08/20/20 - 09/19/20 [facility] [address] [place] [address]- Allergies, Adverse Reactions, Alerts Substance Reaction Severity [...] 03/14/21 10:00:00EDT, 03/19/20 10:00:00 EDT, Tablet, [facility]/pharmacy #[id number], 158, cm, 03/19/20 9:15:00 EDT, Height, 78.1, kg, 03/19/20 9:15:00 EDT, Dry Weight Start Date: 03/19/20 Stop Date: 03/14/21 Status: Ordered tamoxifen 20 mg oral tablet 1 tablet = 20 mg, By Mouth, Daily, # 90 tablet, 3 Refills, Maintenance, 03/14/21 10:00:00 EDT, Tablet, [facility]/pharmacy #[id number], 155, cm, 08/20/20 7:41:00 EST, Height, [...]
--- OUTSIDE RECORDS SUMMARY | 2023-05-01 21:52 | XMS_ITS | Continuity of Care Document ---
Author Name Unknown Organization [facility] Address [address] [place] [address]- Care Team Providers Care Payloader Operator Name Role Phone Rupesh ZAMBRANO, Olesya Carrillo Primary Care Physician [phone] Encounter [facility] [place] Date(s): 03/21/20 - 04/20/20 [facility] [address] [place] [address]- [facility] Attending Physician: Vijaya Parra Admitting Physician: Vijaya Parra Referring Physician: Vijaya Parra Allergies, Adverse Reactions, Alerts Substance Reaction Severity [...] Maintenance, 12/17/16 12:09:00, Route to Pharmacy Electronically, [id number], [facility]/pharmacy #[id number] Start Date: 12/17/16 Status: [...] 07/05/20 8:47:00 EST, 04/04/20 8:46:00 EDT, Cream, [facility]/pharmacy #[id number], 1 application Topically twicedaily; [...] 3 Refills, Maintenance, 03/19/20 10:00:00 EDT, Tablet, [facility]/pharmacy #[id number], 158, cm, 03/19/20 9:15:00 [...]
--- OUTSIDE RECORDS SUMMARY | 2023-05-01 21:52 | XMS_ITS | Continuity of Care Document ---
Author Name Unknown Organization [facility] Address [address] [place] [address]- Care Team Providers Care Technical Intern Name Role Phone Rupesh ZAMBRANO, Olesya Carrillo Primary Care Physician En[place] [facility] [place] Date(s): 09/12/20 - 10/12/[address] [address]- Allergies, Adverse Reactions, Alerts Substance Reaction Severity [...] 03/19/20 10:00:00 EDT, Tablet, [facility]/pharmacy #[id number], 158, cm, 03/19/20 9:15:00 EDT, Height, 78.1, kg, 03/19/20 9:15:00 EDT, Dry Weight Start Date: 03/19/20 Stop Date: 03/14/21 Status: Ordered tamoxifen 20 mg oral tablet 1 tablet = 20 mg, By Mouth, Daily, # 90 tablet, 3 Refills, Maintenance, 03/14/21 10:00:00 EDT, Tablet, [facility]/pharmacy #1094, 155, cm, 08/20/20 7:41:00 EST, [...]
--- OUTSIDE RECORDS SUMMARY | 2023-05-01 21:52 | XMS_ITS | Continuity of Care Document ---
Author Name Unknown Organization [facility] Address [address] [place] [address]- Care Team Providers Care Tower Excavator Operator Name Role Phone Olesya Goddard MD Primary Care Physician Encounter [facility] Date(s): 01/20/20 - 01/27/20 [facility] [address] [place] [address]- [facility] Attending Physician: Lamonte Oliva DO Referring Physician: [...] Maintenance, 12/17/16 12:09:00, Route to Pharmacy Electronically, [id number], [facility]/pharmacy #[id number] Start Date: 12/17/16 Status: Ordered atorvastatin [...] 11 Refills, Maintenance, 06/20/19 9:20:44 EST, [facility]/pharmacy #[id number], 155, cm, 06/20/19 8:37:40 EST, Height [...] Replace Required Details, Route to Pharmacy Electronically, [id number], [facility]/pharmacy #[id number] Start Date: 10/14/16 Status: Ordered Triamcinolone [...] oldest [Reference Range]: 1 Height 155 cm (01/20/20 2:13 PM) Weight 80.1 kg (01/20/20 2:13 PM) Pulse Rate [55-90 bpm] 99 bpm *H* (01/20/20 2:13 PM) Body Mass Index [18.5-24.99] 33.34 *>HHI* (01/20/20 2:13 PM) Blood Pressure [90-138/55-84 mm Hg] 164/ 82mm Hg *H* (01/20/20 2:13 PM) Respiratory Rate [16-30 br/min] 14 br/mi n *L* (01/20/20 2:13 PM) Temperature [96.8-100.4 DegF] 97.5 DegF (01/20/20 2:13 PM) Blood pressure sites Arm, right (01/20/20 2:13 PM) Temperature Route Temporal (01/20/20 2:13 PM) Weight Obtained Via Standing scale (01/20/20 2:13 PM) Social History Social History Type Response Smoking Status Never smoker entered on: 11/29/13 Sex
--- OUTSIDE RECORDS SUMMARY | 2023-05-01 21:52 | XMS_ITS | Continuity of Care Document ---
Author Name Unknown Organization [facility] Address [address] [place] [address]- Care Team Providers Care Auto Parts Handler Name Role Phone Bret ZAMBRANO, Kelley Primary Care Physician ( [phone] Encounter [facility] Date(s): 12/15/22 - 01/14/[address] [address] Attending Physician: Vijaya Parra Admitting Physician: AdmtrVijaya Referring Physician: AdmtrVijaya Allergies, Adverse Reactions, Alerts [...] 3 Refills, Maintenance, 02/27/24 10:00:00 EDT, Tablet, [id number], 155, cm, 12/29/22 9:34:00 EDT, Height, [...] comorbidity Confirmed Active Travel vaccinations Confirmed Active Social History Social History Type Response Smoking Status Never smoker entered on: 11/29/13 Sex Patient Care team information Care Team Personnel Name: Christi Sanchez Position: [facility] Outreach Member Role: Lifetime Consulting Physician Name: Kelley Queen MD Position: [facility] Outreach Member Role: PCP Address: Address: [address] [place] [address] [address] Name: Deb Reynolds RN Position: [facility] Onco RN Member Role: Primary Care Nurse Care Team Related Persons Name: FRIEDA CONTRERAS Address: home [address] [place] [address] Name: RYAN CONTRERAS Address: [place] [address]
--- OUTSIDE RECORDS SUMMARY | 2023-05-01 21:52 | XMS_ITS | Continuity of Care Document ---
Author Name Unknown Organization [facility] Address [address] [place] [address]- Care Team Providers Care Data Architect Name Role Phone Rupesh ZAMBRANO, Olesya Carrillo Primary Care Physician Encounter [facility] Date(s): 07/02/20 - 08/01/20 [facility] [address] [place] [address]- Allergies, Adverse Reactions, Alerts Substance Reaction Severity [...] Maintenance, 12/17/16 12:09:00, Route to Pharmacy Electronically, [id number], [facility]/pharmacy #[id number] Start [...]
--- OUTSIDE RECORDS SUMMARY | 2023-05-01 21:53 | XMS_ITS | Continuity of Care Document ---
Author Name Unknown Organization [facility] Address [address] [place] [address]- Care Team Providers Care Accountant Supervisor Name Role Phone Rupesh ZAMBRANO, Olesya Carrillo Primary Care Physician Encounter [facility] Date(s): 08/20/20 - 08/20/[address] [address]- [phone] Discharge Disposition: A-D/C Home Attending Physician: Merna Hardy MD Admitting Physician: Merna Hardy MD Referring Physician: Merna Hardy MD Allergies, Adverse Reactions, Alerts Substance Reaction Severity Status phenothiazines Rash Active Tegretol LEUKOPENIA Active Cogentin CONFUSED Active Keppra CONFUSED Active Dilantin Rash Moderate Active Immunizations Given and Recorded Vaccine Date [...] Refills, Maintenance, 03/19/20 10:00:00 EDT, Tablet, [facility]/pharmacy #[id number], 158, cm, 03/19/20 9:15:00 EDT, Height, [...] oldest [Reference Range]: 1 2 3 Height 155 cm (08/20/20 7:41 AM) Oxygen Saturation [94-100 %] 99 % (08/20/20 9:30 AM) 98 % (08/20/20 9:20 AM) 100 % (08/20/20 9:15 AM) Pulse Rate [55-90 bpm] 84 bpm (08/20/20 7:41 AM) Blood Pressure [90-138/55-84 mm Hg] 115/62mm Hg (08/20/20 9:30 AM) 102/57mm Hg (08/20/20 9:20 AM) 72/55mm Hg *L* (08/20/20 9:15 AM) Respiratory Rate [16-30 br/min] 19 br/min (08/20/20 9:30 AM) 24 br/min (08/20/20 9:20 AM) 26 br/min (08/20/20 9:15 AM) Temperature [96.8-100.4 DegF] 97.6 DegF (08/20/20 7:41 AM) Liters per Minute 6 L/min (08/20/20 9:15 AM) 6 L/min (08/20/20 9:10 AM) Mode of Delivery (Oxygen) Room air (08/20/20 9:30 AM) Room air (08/20/20 9:20 AM) Simple face mask (08/20/20 9:15 AM) Blood pressure sites Arm, left (08/20/20 9:30 AM) Arm, left (08/20/20 9:20 AM) Arm, left (08/20/20 9:15 AM) Temperature Route Temporal (08/20/20 7:41 AM) Dry Weight 77.2 kg (08/20/20 7:41 AM) Dry Weight Obtained Via Standing scale (08/20/20 7:41 AM) Social History Social History Type Response Smoking Status Never smoker entered on: 11/29/13 Sex
--- OUTSIDE RECORDS SUMMARY | 2023-05-01 21:53 | XMS_ITS | Continuity of Care Document ---
Author Name Unknown Organization [facility] Address [address] [place] [address]- Care Team Providers Care Director Of National Sales Name Role Phone Rupesh ZAMBRANO, Olesya Carrillo Primary Care Physician Encounter [facility] Date(s): 09/10/20 - 10/10/[address] [address] Allergies, Adverse Reactions, Alerts Substance [...] Stop 03/14/21 10:00:00EDT, 03/19/20 10:00:00 EDT, Tablet, [facility]/pharmacy #[id number], 158, cm, 03/19/20 9:15:00 EDT, Height, 78.1, kg, 03/19/20 9:15:00 EDT, Dry Weight Start Date: 03/19/20 Stop Date: 03/14/21 Status: Ordered tamoxifen 20 mg oral tablet 1 tablet = 20 mg, By Mouth, Daily, # 90 tablet, 3 Refills, Maintenance, 03/14/21 10:00:00 EDT, Tablet, [facility]/pharmacy #[id number], 155, cm, 08/20/20 7:41:00 [...]
--- OUTSIDE RECORDS SUMMARY | 2023-05-01 21:53 | XMS_ITS | Continuity of Care Document ---
Author Name Unknown Organization [facility] Address [address] [place] [address]- Care Team Providers Care Ruby On Rails Developer Name Role Phone Bret ZAMBRANO, Kelley Primary Care Physician Encounter [facility] Date(s): 12/06/20 - 02/16/[address] [address]- Encounter Diagnosis Malignant neoplasm of upper-outer quadrant [...] Stop 03/14/21 10:00:00EDT, 03/19/20 10:00:00 EDT, Tablet, [facility]/pharmacy #[id number], 158, cm, 03/19/20 9:15:00 EDT, Height, 78.1, kg, 03/19/20 9:15:00 EDT, Dry Weight Start Date: 03/19/20 Stop Date: 03/14/21 Status: Ordered tamoxifen 20 mg oral tablet 1 tablet = 20 mg, By Mouth, Daily, # 90 tablet, 3 Refills, Maintenance, 03/14/21 10:00:00 EDT, Tablet, [facility]/pharmacy #[id number], 155, cm, 08/20/20 7:41:00 EST, [...] oldest [Reference Range]: 1 Height 155 cm (12/17/20 2:39 PM) Weight 75.3 kg (12/17/20 2:39 PM) Oxygen Saturation [94-100 %] 98 % (12/17/20 2:39 PM) Pulse Rate [55-90 bpm] 78 bpm (12/17/20 2:39 PM) Body Mass Index [18.5-24.99] 31.34 *>HHI* (12/17/20 2:39 PM) Blood Pressure [90-138/55-84 mm Hg] 133/ 61mm Hg (12/17/20 2:39 PM) Respiratory Rate [16-30 br/min] 18 br/mi n (12/17/20 2:39 PM) Temperature [96.8-100.4 DegF] 97.5 DegF (12/17/20 2:39 PM) Liters per Minute 0 L/min (12/17/20 2:39 PM) Mode of Delivery (Oxygen) Room air (12/17/20 2:39 PM) Blood pressure sites Arm, left (12/17/20 2:39 PM) Temperature Route Temporal (12/17/20 2:39 PM) Dry Weight 75.3 kg (12/17/20 2:39 PM) Weight Obtained Via Standing scale (12/17/20 2:39 PM) Dry Weight Obtained Via Standing scale (12/17/20 2:39 PM) Social History Social History Type Response Smoking Status Never smoker entered on: 11/29/13 Sex
--- OUTSIDE RECORDS SUMMARY | 2023-05-01 21:53 | XMS_ITS | Continuity of Care Document ---
Author Name Unknown Organization [facility] Address [address] [place] [address]- Care Team Providers Care Document Control Coordinator Name Role Phone Rupesh ZAMBRANO, Olesya Carrillo Primary Care Physician [phone] Encounter [facility] Date(s): 10/26/20 - 11/25/20 [facility] [address] [place] [id number] Attending Physician: Vijaya Parra Admitting Physician: Vijaya [...] Stop 03/14/21 10:00:00EDT, 03/19/20 10:00:00 EDT, Tablet, [facility]/pharmacy #[id number], 158, cm, 03/19/20 9:15:00 EDT, Height, 78.1, kg, 03/19/20 9:15:00 EDT, Dry Weight Start Date: 03/19/20 Stop Date: 03/14/21 Status: Ordered tamoxifen 20 mg oral tablet 1 tablet = 20 mg, By Mouth, Daily, # 90 tablet, 3 Refills, Maintenance, 03/14/21 10:00:00 EDT, Tablet, [facility]/pharmacy #[id number], 155, cm, 08/20/20 7:41:00 EST, Height, [...]
--- OUTSIDE RECORDS SUMMARY | 2023-05-01 21:53 | XMS_ITS | Continuity of Care Document ---
Author Name Unknown Organization [facility] Address [address] [place] [address]- Care Team Providers Care Frame Polisher Name Role Phone Kelley Queen MD Primary Care Physician ( [phone] Encounter [facility] Date(s): 11/19/21 - 03/02/22 [facility] [address] [place] [address] Attending Physician: Olvin Duarte MD Admitting Physician: Olvin Duarte MD Referring Physician: Kelley Queen MD Allergies, Adverse Reactions, Alerts Substance Reaction [...] Stop 03/09/22 10:00:00EDT, 03/14/21 10:00:00 EDT, Tablet, [facility]/pharmacy #[id number], 155, cm, 08/20/20 7:41:00 EST, Height, 77.2, kg, 08/20/20 7:41:00 EST, Dry Weight Start Date: 03/14/21 Stop Date: 03/09/22 Status: Ordered tamoxifen 20 mg oral tablet 1 tablet = 20 mg, By Mouth, Daily, # 90 tablet, 3 Refills, Maintenance, 03/09/22 10:00:00 EDT, Tablet, [facility]/pharmacy #[id number], 155, cm, 06/19/21 10:45:00 EST, [...] 11/29/13 Sex Care Team Personnel Name: Kelley Queen MD Address: [address] [place] [address]
--- OUTSIDE RECORDS SUMMARY | 2023-05-01 21:53 | XMS_ITS | Continuity of Care Document ---
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 Hematoma of right breast(Final) - 03/08/20 Discharge Disposition: A-D/C Home Attending Physician: Lamonte lOiva DO Admitting Physician: Lamonte Oliva DO Referring [...] Maintenance, 12/17/16 12:09:00, Route to Pharmacy Electronically, [id number], [facility]/pharmacy #[id number] Start Date: 12/17/16 Status: Ordered atorvastatin 10 mg oral tablet 1 tablet = 10 mg, By Mouth, Daily in AM, 0 Refills, Maintenance, 07/12/19 13:52:00 EST Start Date: 07/12/19 Status: Ordered ciprofloxacin 500 mg oral tablet 1 tablet = 500 mg, By Mouth, Every 12 hours, for 5 days, # 10 tablet, 0 Refills, Acute 03/13/20 10:19:00 EDT, 03/08/20 10:19:00 EDT, Tablet, [facility]/pharmacy #[id number], 158, cm, 03/08/20 5:06:00 EDT, Height,78.8, kg, 03/07/20 22:17:00 EDT, Dry Weight Start Date: 03/08/20 Stop Date: 03/13/20 Status: Ordered CPAP Machine [...] tablet, 11 Refills, Maintenance, 06/20/19 9:20:44 EST, [facility]/pharmacy #[id number], 155, cm, 06/20/19 8:37:40 EST, Height [...] on CPAP(Confirmed) Active Travel vaccinations(Confirmed) Active Results Orders for Microbiology Reports Name Date Anaerobic Culture (ANAEROBIC CULTURE) 03/07/20 Wound Deep Culture w/ Gram Smear (DEEP W OUND CULTURE) 03/07/20 Microbiology Reports TEST:Anaerobic Culture STATUS:Unauthenticated BODY SITE: SOURCE:SWAB1 COLLECTED DATE/TIME:03/07/20 9:16 PM Anaerobic Culture SPECIMEN DESCRIPTION : SWAB RIGHT BREAST SPECIAL REQUESTS : NONE CULTURE : NO ANAEROBES ISOLATED SO FAR. REPORT STATUS : PRELIMINARY REPORT TEST:Deep Wound Culture STATUS:Unauthenticated BODY SITE: SOURCE:SWAB1 COLLECTED DATE/TIME:03/07/20 9:16 PM Deep Wound Culture SPECIMEN DESCRIPTION : SWAB RIGHT BREAST SPECIAL REQUESTS : NONE GRAM STAIN : 3+ POLYMORPHONUCLEAR LEUKOCYTES 2+ GRAM NEGATIVE RODS 1+ GRAM POSITIVE COCCI REPORT STATUS : PRELIMINARY REPORT Vital Signs Most recent to oldest [Reference Range]: 1 2 3 Height 158 cm (03/08/20 5:06 AM) 158 cm (03/07/20 10:21 PM) 158 cm (03/07/20 10:17 PM) Weight 78.8 kg (03/07/20 10:17 PM) 78.8 kg (03/07/20 7:10 PM) 78.8 kg (03/07/20 5:22 PM) Oxygen Saturation [94-100 %] 99 % (03/08/20 8:00 AM) 98 % (03/08/20 5:06 AM) 100 % (03/07/20 10:21 PM) Pulse Rate [55-90 bpm] 107 bpm *H* (03/08/20 8:00 AM) 101 bpm *H* (03/08/20 5:06 AM) 80 bpm (03/07/20 10:21 PM) Body Mass Index [18.5-24.99] 31.57 *>HHI* (03/07/20 10:17 PM) 31.57 *>HHI* (03/07/20 7:10 PM) 31.57 *>HHI* (03/07/20 5:22 PM) Blood Pressure [90-138/55-84 mm Hg] 139/71mm Hg *H* (03/08/20 8:00 AM) 138/67mm Hg (03/08/20 5:06 AM) 148/67mm Hg *H* (03/07/20 10:21 PM) Respiratory Rate [16-30 br/min] 18 br/min (03/08/20 8:00 AM) 19 br/min (03/08/20 5:06 AM) 19 br/min (03/07/20 10:21 PM) Temperature [96.8-100.4 DegF] 98.5 DegF (03/08/20 8:00 AM) 98.6 DegF (03/08/20 5:06 AM) 98.8 DegF (03/07/20 10:21 PM) Liters per Minute 2 L/min (03/07/20 9:00 PM) Mode of Delivery (Oxygen) Room air (03/08/20 8:00 AM) Room air (03/08/20 5:06 AM) Room air (03/07/20 10:21 PM) Blood pressure sites Arm, right (03/08/20 8:00 AM) Arm, right (03/08/20 5:06 AM) Arm, right (03/07/20 10:21 PM) Temperature Route Oral (03/08/20 8:00 AM) Oral (03/08/20 5:06 AM) Oral (03/07/20 10:21 PM) Dry Weight 78.8 kg (03/07/20 10:17 PM) 78.8 kg (03/07/20 5:22 PM) 78.8 kg (03/07/20 1:00 PM) Weight Obtained Via Standing scale (03/07/20 12:52 PM) Dry Weight Obtained Via Standing scale (03/07/20 12:52 PM) Social History Social History Type Response Smoking Status Never smoker entered on: 11/29/13 Sex
--- OUTSIDE RECORDS SUMMARY | 2023-05-01 21:53 | XMS_ITS | Continuity of Care Document ---
Author Name Unknown Organization [facility] Address [address] [place] [address]- Care Team Providers Care Make Up Operator Name Role Phone Bret ZAMBRANO, Kelley Primary Care Physician Encounter [facility] Date(s): 01/24/21 - 02/28/[address] [address] Attending Physician: Kelley Queen MD Admitting Physician: Kelley Queen MD Referring Physician: Kelley uQeen MD Allergies, Adverse Reactions, Alerts Substance Reaction [...]
--- OUTSIDE RECORDS SUMMARY | 2023-05-01 21:53 | XMS_ITS | Continuity of Care Document ---
Author Name Unknown Organization [facility] Address [address] [place] [address]- Care Team Providers Care Contracts Advisor Name Role Phone Rupesh ZAMBRANO, Olesya Carrillo Primary Care Physician Encounter [facility] Date(s): 08/13/20 - 09/12/20 [facility] [address] [place] [address]- Allergies, Adverse Reactions, Alerts Substance Reaction Severity [...] Stop 03/14/21 10:00:00EDT, 03/19/20 10:00:00 EDT, Tablet, [facility]/pharmacy #[id number], 158, cm, 03/19/20 9:15:00 EDT, Height, 78.1, kg, 03/19/20 9:15:00 EDT, Dry Weight Start Date: 03/19/20 Stop Date: 03/14/21 Status: Ordered tamoxifen 20 mg oral tablet 1 tablet = 20 mg, By Mouth, Daily, # 90 tablet, 3 Refills, Maintenance, 03/14/21 10:00:00 EDT, Tablet, [facility]/pharmacy #[id number], 155, cm, 08/20/20 7:41:00 EST, Height, [...]
--- OUTSIDE RECORDS SUMMARY | 2023-05-01 21:53 | XMS_ITS | Continuity of Care Document ---
Author Name Unknown Organization [facility] Address [address] [place] [address]- Care Team Providers Care Math And Physics Instructor Name Role Phone Bret ZAMBRANO, Kelley Primary Care Physician ( [phone] Encounter [facility] Date(s): 12/06/20 - 01/05/[address] [address] Attending Physician: Vijaya Parra Admitting Physician: [...] Stop 03/14/21 10:00:00EDT, 03/19/20 10:00:00 EDT, Tablet, [facility]/pharmacy #[id number], 158, cm, 03/19/20 9:15:00 EDT, Height, 78.1, kg, 03/19/20 9:15:00 EDT, Dry Weight Start Date: 03/19/20 Stop Date: 03/14/21 Status: Ordered tamoxifen 20 mg oral tablet 1 tablet = 20 mg, By Mouth, Daily, # 90 tablet, 3 Refills, Maintenance, 03/14/21 10:00:00 EDT, Tablet, [facility]/pharmacy #[id number], 155, cm, 08/20/20 7:41:00 [...]
--- OUTSIDE RECORDS SUMMARY | 2023-05-01 21:53 | XMS_ITS | Continuity of Care Document ---
Author Name Unknown Organization [facility] Address [address] [place] [address]- Care Team Providers Care Shopper Marketing Manager Name Role Phone Rupesh ZAMBRANO, Olesya Carrillo Primary Care Physician En[place] [facility] Date(s): 03/21/20 - 07/07/20 [facility] [address] [place] [address]- Discharge Disposition: A-D/C Home Attending Physician: Betsey Gutierrez MD Admitting Physician: Betsey Gutierrez MD Referring Physician: Ruby Quispe MD Allergies, Adverse Reactions, Alerts Substance Reaction [...] Maintenance, 12/17/16 12:09:00, Route to Pharmacy Electronically, [id number], [facility]/pharmacy #[id number] Start Date: 12/17/16 Status: Ordered [...] Refills, Maintenance, 03/19/20 10:00:00 EDT, Tablet, [facility]/pharmacy #[id number], 158, cm, 03/19/20 9:15:00 [...] oldest [Reference Range]: 1 Height 150.8 cm (03/26/20 12:30 PM) Weight 78.9 kg (03/26/20 12:30 PM) Pulse Rate [55-90 bpm] 97 bpm *H* (03/26/20 12:30 PM) Body Mass Index [18.5-24.99] 34.7 *>HHI* (03/26/20 12:30 PM) Blood Pressure [90-138/55-84 mm Hg] 152/ 71mm Hg *H* (03/26/20 12:30 PM) Temperature [96.8-100.4 DegF] 97.5 DegF (03/26/20 12:30 PM) Blood pressure sites Arm, right (03/26/20 12:30 PM) Temperature Route Temporal (03/26/20 12:30 PM) Dry Weight 78.9 kg (03/26/20 12:30 PM) Weight Obtained Via Standing scale (03/26/20 12:30 PM) Dry Weight Obtained Via Standing scale (03/26/20 12:30 PM) Social History Social History Type Response Smoking Status Never smoker entered on: 11/29/13 Sex
--- OUTSIDE RECORDS SUMMARY | 2023-05-01 21:53 | XMS_ITS | Continuity of Care Document ---
Author Name Unknown Organization [facility] Address [address] [place] [address]- Care Team Providers Care Link Trainer Maintenance Worker Name Role Phone Bret ZAMBRANO, Kelley Primary Care Physician Encounter [facility] Date(s): 12/04/21 - 02/15/[address] [address]- Encounter Diagnosis Malignant neoplasm of upper-outer quadrant [...] Stop 03/09/22 10:00:00EDT, 03/14/21 10:00:00 EDT, Tablet, [facility]/pharmacy #[id number], 155, cm, 08/20/20 7:41:00 EST, Height, 77.2, kg, 08/20/20 7:41:00 EST, Dry Weight Start Date: 03/14/21 Stop Date: 03/09/22 Status: Ordered tamoxifen 20 mg oral tablet 1 tablet = 20 mg, By Mouth, Daily, # 90 tablet, 3 Refills, Maintenance, 03/09/22 10:00:00 EDT, Tablet, [facility]/pharmacy #[id number], 155, cm, 06/19/21 [...] oldest [Reference Range]: 1 Height 155 cm (12/16/21 10:01 AM) Weight 87.9 kg (12/16/21 10:01 AM) Oxygen Saturation [94-100 %] 94 % (12/16/21 10:01 AM) Pulse Rate [55-90 bpm] 96 bpm *H* (12/16/21 10:01 AM) Body Mass Index [18.5-24.99] 36.59 *>HHI* (12/16/21 10:01 AM) Blood Pressure [90-138/55-84 mm Hg] 125/ 63mm Hg (12/16/21 10:01 AM) Respiratory Rate [16-30 br/min] 18 br/mi n (12/16/21 10:01 AM) Temperature [96.8-100.4 DegF] 97 DegF (12/16/21 10:01 AM) Liters per Minute 0 L/min (12/16/21 10:01 AM) Mode of Delivery (Oxygen) Room air (12/16/21 10:01 AM) Blood pressure sites Arm, left (12/16/21 10:01 AM) Temperature Route Temporal (12/16/21 10:01 AM) Dry Weight 87.9 kg (12/16/21 10:01 AM) Weight Obtained Via Standing scale (12/16/21 10:01 AM) Dry Weight Obtained Via Standing scale (12/16/21 10:01 AM) Social History Social History Type Response Smoking Status Never smoker entered on: 11/29/13 Sex
--- OUTSIDE RECORDS SUMMARY | 2023-05-01 21:53 | XMS_ITS | Continuity of Care Document ---
Author Name Unknown Organization [facility] Address [address] [place] [address]- Care Team Providers Care Sleeve Wheel Maker Name Role Phone Rupesh ZAMBRANO, Olesya Carrillo Primary Care Physician [phone] Encounter [facility] Date(s): 03/16/20 - 04/15/[address] [address] [phone] Attending Physician: Vijaya Parra Admitting Physician: Vijaya [...] Maintenance, 12/17/16 12:09:00, Route to Pharmacy Electronically, [id number], [facility]/pharmacy #[id number] Start Date: [...] 07/05/20 8:47:00 EST, 04/04/20 8:46:00 EDT, Cream, [facility]/pharmacy #[id number], 1 application Topically [...] 3 Refills, Maintenance, 03/19/20 10:00:00 EDT, Tablet, [facility]/pharmacy #1094, 158, cm, 03/19/20 [...]
--- OUTSIDE RECORDS SUMMARY | 2023-05-01 21:53 | XMS_ITS | Continuity of Care Document ---
Author Name Unknown Organization [facility] Address [address] [place] [address]- Care Team Providers Care Torch Burner Name Role Phone Rupesh ZAMBRANO, Olesya Carrillo Primary Care Physician Encounter [facility] [place] Date(s): 10/25/20 - 11/24/20 [facility] [address] [place] [id number] Allergies, Adverse Reactions, Alerts Substance Reaction [...] Stop 03/14/21 10:00:00EDT, 03/19/20 10:00:00 EDT, Tablet, [facility]/pharmacy #[id number], 158, cm, 03/19/20 9:15:00 EDT, Height, 78.1, kg, 03/19/20 9:15:00 EDT, Dry Weight Start Date: 03/19/20 Stop Date: 03/14/21 Status: Ordered tamoxifen 20 mg oral tablet 1 tablet = 20 mg, By Mouth, Daily, # 90 tablet, 3 Refills, Maintenance, 03/14/21 10:00:00 EDT, Tablet, [facility]/pharmacy #1094, 155, cm, 08/20/20 7:41:00 EST, Height, [...]
--- OUTSIDE RECORDS SUMMARY | 2023-05-01 21:53 | XMS_ITS | Continuity of Care Document ---
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) - Discharge Disposition: A-D/C Home Attending Physician: Ruby Quispe MD Admitting Physician: Ruby Quispe MD Referring Physician: Lamonte Oliva DO Allergies, [...] 3 Refills, Maintenance, 03/19/20 10:00:00 EDT, Tablet, [id number], 158, cm, 03/19/20 9:15:00 EDT, Height, [...] oldest [Reference Range]: 1 Height 158 cm (03/19/20 9:15 AM) Weight 78.1 kg (03/19/20 9:15 AM) Oxygen Saturation [94-100 %] 100 % (03/19/20 9:15 AM) Pulse Rate [55-90 bpm] 91 bpm *H* (03/19/20 9:15 AM) Body Mass Index [18.5-24.99] 31.29 *>HHI* (03/19/20 9:15 AM) Blood Pressure [90-138/55-84 mm Hg] 141/ 74mm Hg *H* (03/19/20 9:15 AM) Respiratory Rate [16-30 br/min] 20 br/mi n (03/19/20 9:15 AM) Temperature [96.8-100.4 DegF] 97.4 DegF (03/19/20 9:15 AM) Liters per Minute 0 L/min (03/19/20 9:15 AM) Mode of Delivery (Oxygen) Room air (03/19/20 9:15 AM) Blood pressure sites Arm, left (03/19/20 9:15 AM) Temperature Route Temporal (03/19/20 9:15 AM) Dry Weight 78.1 kg (03/19/20 9:15 AM) Weight Obtained Via Standing scale (03/19/20 9:15 AM) Dry Weight Obtained Via Standing scale (03/19/20 9:15 AM) Social History Social History Type Response Smoking Status Never smoker entered on: 11/29/13 Sex
--- OUTSIDE RECORDS SUMMARY | 2023-05-01 21:53 | XMS_ITS | Continuity of Care Document ---
Author Name Unknown Organization [facility] Address [address] [place] [address]- Care Team Providers Care Employment Director Name Role Phone Bret ZAMBRANO, Kelley Primary Care Physician [place] [facility] [place](s): 05/28/22 - 06/27/[address] [id number] Attending Physician: Vijaya Parra Admitting [...] Stop 03/04/23 10:00:00EDT, 03/09/22 10:00:00 EDT, Tablet, [id number], 155, cm, 06/19/21 10:45:00 EST, Height, 75,kg, 01/26/21 16:14:00 EDT, Dry Weight Start Date: 03/09/22 Stop Date: 03/04/23 Status: Ordered tamoxifen 20 mg oral tablet 1 tablet = 20 mg, By Mouth, Daily, # 90 tablet, 3 Refills, Maintenance, 03/04/23 10:00:00 EDT, Tablet, [facility] #[id number], 155, cm, 12/16/21 10:01:00 EDT, [...] CPAP Confirmed Active Travel vaccinations Confirmed Active Social History Social History Type Response Smoking Status Never smoker entered on: 11/29/13 Sex Patient Care team information Care Team Personnel Name: Christi Sanchez Position: [facility] Outreach Member Role: Lifetime Consulting Physician Name: Kelley Queen MD Position: [facility] Outreach Member Role: PCP Address: Address: [address] [place] [id number] Name: Rodolfo CHAN , Deb Position: [facility] RN Member Role: Primary Care Nurse Care Team Related Persons Name: FRIEDA CONTRERAS Address: home [address] [place] [address] Name: RYAN CONTRERAS Address: home [address] [place] [address]
--- OUTSIDE RECORDS SUMMARY | 2023-05-01 21:53 | XMS_ITS | Continuity of Care Document ---
Author Name Unknown Organization [facility] Address [address] [place] [address]- Care Team Providers Care Autocad Draftsman Name Role Phone Rupesh ZAMBRANO, Olesya Carrillo Primary Care Physician Encounter [facility] [place] Date(s): 06/19/20 - 07/19/20 [facility] [address] [place] [id number] Allergies, Adverse Reactions, Alerts Substance Reaction [...] Maintenance, 12/17/16 12:09:00, Route to Pharmacy Electronically, [id number], [facility]pharm[facility] #[id number] Start Date: 12/17/16 Status: Ordered atorvastatin 10 [...]
[2023-05-01 23:00] VITALS: BP 128/72; PULSE 86; RESP 18; TEMP 36.2; O2SAT 96
[2023-05-01 23:14] LABS: COVID-19 Test Negative (Negative); IDNOW Serial# 08D9AD1C
--- NOTE | 2023-05-02 02:43 | PC.ADMIT ---
PT Arrived on floor via stretcher at 2200 on 05/01/23 . Admitted to S1 from [facility] for depression and SI with no plan PT vs wnl . Covid test was not done and had to be sent from this floor it was negative. PT is pleasant denies active SI expressed being very tired and wanted to go to bed. At which time she was taken to her room and allowed to sleep.
[2023-05-02 08:00] VITALS: BP 118/67; PULSE 85; RESP 18; TEMP 36.2; O2SAT 99
[2023-05-02] MEDS: ARIPiprazole 5 MG TABLET PO (12:16)
[2023-05-02] MEDS: Aspirin 81 MG TAB.CHEW PO (12:16)
[2023-05-02] MEDS: hydroCHLOROthiazide 25 MG TABLET PO (12:17)
[2023-05-02] MEDS: Atorvastatin Calcium 20 MG TABLET PO (12:17)
--- NOTE | 2023-05-02 12:23 | HO.PM.IMCN ---
History of Present Illness Data of Consult Service Date: 05/02/23 Requesting physician: Modesta Redman Primary Care Provider: Unknown Physician HPI Reason for consult: medical H&P 77 year old female with history of asthma, right-sided breast cancer treated with radiation, history TIA, PTSD, osteopenia, hypertension, hyperlipidemia, hypothyroidism, GERD, hypothyroidism, sleep apnea admitted to Psychiatry with consult placed to hospitalist service for medical H and P. She is admitted from [facility] ED . ED records reviewed. Hematology studies unremarkable, renal function significant for CKD stage 3, electrolyte levels normal. Hepatic function normal, ethanol level undetectable, urine tox screen undetectable. She has no acute medical issues and no acute medical concerns at this time. She denies any alcohol use, cigarette smoking, or drug use. Review of Systems Review of Systems: General: No fevers, malaise, unintentional weight loss HEENT: No blurred vision, diplopia. No sore throat, nasal congestion, rhinorrhea, sinus pain, ear pain Cardiovascular: No chest pain, palpitations, or leg edema Respiratory: No shortness of breath, wheezing, cough GI: No abdominal pain, nausea, vomiting, diarrhea, constipation, melena, hematochezia : No dysuria, hematuria, increased urinary frequency, decreased urinary output MSK: No myalgia, back pain Neuro: No headaches, weakness, paresthesias Skin: No rashes or lesions [facility] Medical History (Updated 05/02/23 @ 12:36 by HESHAM Roberson) Osteopenia Asthma Breast cancer Hiatal hernia GERD (gastroesophageal reflux disease) Hypothyroidism Hyperlipidemia Hypertension Surgical History (Updated 05/02/23 @ 12:30 by HESHAM Roberson) S/P radiation therapy S/P lumpectomy, right breast Social History Household Members: None Housing: Unknown / Unable to assess Do you presently have visiting nurse or other home services: No Patient Tobacco Use Status: Never used Tobacco Use of substances other than those prescribed or required for medical reasons: No Spiritual Healthcare Practices: no Mandaen Healthcare Practices: no Cultural Healthcare Practices: no Advance Directives: No Advance Directives Information Provided: No Do you have thoughts of harming others: None Recently lost weight without trying: No Nutrition Risks: No Nutritional Risk Patient : No : No Poor oral hygiene: No Meds Allergies Allergy/AdvReac Type Severity Reaction Status Date / Time benztropine [From Cogentin] AdvReac Hemolytic Verified 05/01/23 22:23 Anemia carbamazepine AdvReac Hemolytic Verified 05/01/23 22:23 Anemia levetiracetam [From Keppra] AdvReac Hemolytic Verified 05/01/23 22:23 Anemia Phenothiazines AdvReac Hemolytic Verified 05/01/23 22:23 Anemia phenytoin [From Dilantin] AdvReac Hemolytic Verified 05/01/23 22:23 Anemia Active Medications: Current Medications Acetaminophen (Acetaminophen 325 Mg Tablet) 650 mg PO Q6H PRN PRN Reason: Headache/Pain Mild Scale (1-3) Al Hydroxide/Mg Hydroxide (Magnesium Hydrox/Alum Hydrox 30 Ml Oral.Susp) 30 ml PO Q6H PRN PRN Reason: Heartburn/Nausea Aripiprazole (Aripiprazole 5 Mg Tablet) 5 mg PO DAILY [facility] Last Admin: 05/02/23 12:16 Dose: 5 mg Aspirin (Aspirin 81 Mg Tab.Chew) 81 mg PO DAILY [facility] Last Admin: 05/02/23 12:16 Dose: 81 mg Atorvastatin Calcium (Atorvastatin Calcium 20 Mg Tablet) 20 mg PO DAILY [facility] Last Admin: 05/02/23 12:17 Dose: 20 mg Hydrochlorothiazide (Hydrochlorothiazide 25 Mg Tablet) 25 mg PO DAILY SHY; Protocol Last Admin: 05/02/23 12:17 Dose: 25 mg Levothyroxine Sodium (Levothyroxine Sodium 75 Mcg Tablet) 75 mcg PO DAILY@0600 [facility] Magnesium Hydroxide (Milk Of Magnesia 30 Ml Oral.Susp) 30 ml PO DAILY PRN PRN Reason: Constipation Ondansetron HCl (Ondansetron Odt 4 Mg Tab.Rapdis) 4 mg TRANSLINGU Q8H PRN PRN Reason: nausea Tamoxifen Citrate (Tamoxifen Citrate 10 Mg Tablet) 20 mg PO DAILY [facility] Trazodone HCl (Trazodone Hcl 25 Mg Halftab) 25 mg PO BEDTIME MRX1 PRN PRN Reason: Insomnia Valsartan (Valsartan 320 Mg Tablet) 320 mg PO BEDTIME [facility]; Protocol Vilazodone HCl (Vilazodone Hcl 20 Mg Tablet) 20 mg PO DAILY [facility] Vilazodone HCl (Vilazodone Hcl 40 Mg Tablet) 40 mg PO DAILY [facility] Home Medications Medication Instructions Recorded Confirmed Last Taken Type Protonix 40 mg PO QAM GERD 10/05/02/23 05/01/23 17:50 History aripiprazole 5 mg tablet 5 mg PO DAILY 05/02/23 05/02/23 Unknown History atorvastatin 20 mg tablet 20 mg PO DAILY 05/02/23 05/02/23 Unknown History uydqagirrul-tjqtpjmic-uvbwsjnr PO DAILY SOB 05/02/23 Unknown History hydrochlorothiazide 25 mg tablet 25 mg PO DAILY 05/02/23 05/02/23 Unknown History levothyroxine 75 mcg tablet 75 mcg PO DAILY 05/02/23 05/02/23 Unknown History nintedanib 150 mg capsule (Ofev) 150 PO BIDWMEAL 05/02/23 Unknown History ondansetron 4 mg disintegrating 4 mg PO Q8H PRN nausea 05/02/23 05/02/23 Unknown History tablet tamoxifen 20 mg tablet 20 mg PO DAILY 05/02/23 05/02/23 Unknown History valsartan 320 mg tablet 320 mg PO BEDTIME 05/02/23 05/02/23 Unknown History vilazodone 20 mg tablet (Viibryd) 20 mg PO DAILY 05/02/23 05/02/23 Unknown History vilazodone 40 mg tablet (Viibryd) 40 mg PO DAILY 05/02/23 05/02/23 Unknown History Physical Exam Vital Signs and Narrative: Vital Signs: Last Vital Signs Temp 97.1 F 05/02/23 08:00 Pulse 85 05/02/23 08:00 Resp 18 05/02/23 08:00 BP 118/67 05/02/23 08:00 Pulse Ox 99 05/02/23 08:00 O2 Del Method Room Air 05/02/23 08:00 Constitutional - Awake and Alert, No apparent distress Eyes - PERRLA, EOMI Cardiovascular - S1S2, RRR, No edema Respiratory - Normal lung expansion, Normal respiratory effort, No respiratory distress, CTA bilaterally Gastrointestinal - NT / ND; +BS; No rebound or guarding Extremities - no calf tenderness bilaterally, no swelling Musculoskeletal - Normal inspection, normal ROM Skin - Warm/Dry Neurological - Alert & oriented x3, CN II-XII in tact, 5/5 strength BUE and BLE Psychological - Appropriate affect Results Labs Labs: Laboratory Results - last 24 hr 05/01/23 22:45 COVID-19 ([facility]) Negative COVID-19 Clin Com See Note Assessment and Plan (1) Routine medical exam: Status: Acute Plan 77 year old female with history of asthma, right-sided breast cancer treated with radiation, history TIA, PTSD, osteopenia, hypertension, hyperlipidemia, hypothyroidism, GERD, hypothyroidism, sleep apnea admitted to Psychiatry with consult placed to hospitalist service for medical H and P. #Mood disorder -plan per psychiatry #Hypothyroidism -continue levothyroxine #HTN -continue hctz, valsartan #history right sided breast cancer -s/p lumpectomy and radiation -continue tamoxifen #HLF -continue statin #Moderate persistent asthma -continue maintenance inhalers -albuterol prn #GERD/hital hernia -continue ppi Thank you for allowing me to participate in this consult. Signing off at this time. Please do not hesitate to call for further questions or for any acute medical issues Time Spent With Patient Time: Total time managing care of this patient today ____ minutes.
[2023-05-02] MEDS: Vilazodone HCL 40 MG TABLET PO (15:50)
[2023-05-02] MEDS: Tamoxifen Citrate 10 MG TABLET 20 MG PO (15:50)
[2023-05-02] MEDS: Vilazodone HCL 20 MG TABLET PO (15:50)
--- NOTE | 2023-05-02 17:59 | P.HPPS_ITS ---
HPI Date of Service: 05/02/23 Chief Complaint: Major depressive disorder, recurrent episode Sources of Information: patient interviewed, chart reviewed and crisis/core team assessment reviewed HPI Subjective Notes: [place] Warning and Conditional Voluntary Narrative: Patient is a 77-year-old resilient woman with history of depression, pulmonary fibrosis, sleep apnea on CPAP at home who self presents for worsening depression and suicidal ideation. Patient reports that she has done well for quite some time until a few months ago when she got a worsening prognosis of lung complications due to pulmonary fibrosis. Since then she has been feeling more depressed. Patient cites other stressors that are contributory including her sons struggles depression and recent miscarriage. Than, A few weeks ago she went to look at a usp with her daughter which further worsened depressive symptoms including low energy, poor concentration, diminished interest, not getting out of bed triggering suicidal ideation. Patient said she started having fantasies about dying and even killing herself. Love for her children and grandchildren is a strong protective factors so patient call friend asking for ride to the emergency room. Patient has been taking her medications regularly. She was restarted on Abilify just 2 days ago because of depression. Patient reports struggling with wanting to give up and but also not wanting to leave her children with that painful memory. Past Psychiatric History: Patient reports multiple past psychiatric hospitalizations however none for the past 8 years History of suicidal ideation and attempts Patient has been working with Dr. Shipman for 20 years but recently switched to new psychiatrist Dr. Chin Patient also has a new therapist Medical Evaluation Reviewed: Hospitalist Aurea Pending [facility] Medical History (Updated 05/03/23 @ 16:00 by Porfirio Solis MD) Pulmonary fibrosis MDD (major depressive disorder), recurrent episode, severe Osteopenia Asthma Breast cancer Hiatal hernia GERD (gastroesophageal reflux disease) Hypothyroidism Hyperlipidemia Hypertension Surgical History (Updated 05/02/23 @ 12:30 by HESHAM Roberson) S/P radiation therapy S/P lumpectomy, right breast Family History: Son: Depression Social History: Master's degree, doctorate in psychology/theology; 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; 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 History of homelessness; worked very are to become stable and has been productive in her adult life Patient lives alone but finds her community neighborhood very supportive Patient is close to her 2 daughters, 1 son and 3 grandchildren Substance History: none Trauma History: Deferred Diagnostics Vital Signs (24Hr): Vital Signs - 24 hr 05/01/23 23:00 05/02/23 08:00 Temperature 97.1 F 97.1 F Pulse Rate 86 85 Respiratory Rate 18 18 Blood Pressure 128/72 118/67 Pulse Oximetry 96 99 Oxygen Delivery Method Room Air Room Air Labs Labs: Laboratory Results - last 48 hr 05/01/23 22:45 COVID-19 ([facility]) Negative COVID-19 Clin Com See Note Meds/Allergies Meds Home Medications Medication Instructions Recorded Confirmed Type Protonix 40 mg PO QAM GERD 05/02/23 05/02/23 History aripiprazole 5 mg tablet 5 mg PO DAILY 05/02/23 05/02/23 History atorvastatin 20 mg tablet 20 mg PO DAILY 05/02/23 05/02/23 History ammfdpndwcu-qjancymue-buvooyoy See Rx Instructions .Route 05/02/23 05/02/23 History .COMPLEX SOB hydrochlorothiazide 25 mg tablet 25 mg PO DAILY 05/02/23 05/02/23 History levothyroxine 75 mcg tablet 75 mcg PO DAILY 05/02/23 05/02/23 History nintedanib 150 mg capsule (Ofev) 150 PO BIDWMEAL 05/02/23 History ondansetron 4 mg disintegrating 4 mg PO Q8H PRN nausea 05/02/23 05/02/23 History tablet tamoxifen 20 mg tablet 20 mg PO DAILY 05/02/23 05/02/23 History valsartan 320 mg tablet 320 mg PO BEDTIME 05/02/23 05/02/23 History vilazodone 20 mg tablet (Viibryd) 20 mg PO DAILY 05/02/23 05/02/23 History vilazodone 40 mg tablet (Viibryd) 40 mg PO DAILY 05/02/23 05/02/23 History Allergies Allergies Allergy/AdvReac Type Severity Reaction Status Date / Time benztropine [From Cogentin] AdvReac Hemolytic Verified 05/01/23 22:23 Anemia carbamazepine AdvReac Hemolytic Verified 05/01/23 22:23 Anemia levetiracetam [From Keppra] AdvReac Hemolytic Verified 05/01/23 22:23 Anemia Phenothiazines AdvReac Hemolytic Verified 05/01/23 22:23 Anemia phenytoin [From Dilantin] AdvReac Hemolytic Verified 05/01/23 22:23 Anemia Mental Status Exam Mental Status Exam Narrative: Pt is alert and oriented; behavior is cooperative, friendly and calm; patient is not in distress; dressed in casual attire, well groomed; mood is described as depressed and affect congruent, downcast; eye contact avoiding; Speech is a soft, a little slowed but normal prosody; psychomotor retardation present; thought process is organized and goal directed; Thought content is on bleak outlook, tired of fighting, pushing off SI; otherwise pertinent to relevant topics and without any delusional content, paranoid ideations or grandiosity; passive SI/no HI. There is no evidence of perceptual disturbance. Patients insight and judgment impaired Assessment & Plan Assessment & Plan (1) MDD (major depressive disorder), recurrent episode, severe: Status: Acute Code(s): F33.2 - Major depressive disorder, recurrent severe without psychotic features (2) Pulmonary fibrosis: Status: Acute Code(s): J84.10 - Pulmonary fibrosis, unspecified Plan HPI: Patient is a 77-year-old resilient woman with history of depression, pulmonary fibrosis, sleep apnea on CPAP at home who self presents for worsening depression and suicidal ideation. Patient reports that she has done well for quite some time until a few months ago when she got a worsening prognosis of lung complications due to pulmonary fibrosis. Since then she has been feeling more depressed. Patient cites other stressors that are contributory including her sons struggles depression and recent miscarriage. Than, A few weeks ago she went to look at a usp with her daughter which further worsened depressive symptoms including low energy, poor concentration, diminished interest, not getting out of bed triggering suicidal ideation. Patient said she started having fantasies about dying and even killing herself. Love for her children and grandchildren is a strong protective factors so patient call friend asking for ride to the emergency room. Patient has been taking her medications regularly. She was restarted on Abilify just 2 days ago because of depression. Patient reports struggling with wanting to give up and but also not wanting to leave her children with that painful memory. Given the patient was recently restarted on Abilify, 2 days ago will leave medications as they are and see if augmentation is helpful; patient cannot remember whether or not it was helpful in the past Plan: CV Q 15 minute checks Will order CPAP Continue home medications Protonix 40 mg PO QAM GERD daily aripiprazole 5 mg tablet daily (recently restarted) atorvastatin 20 mg tablet daily?? xpvnjpqxjog-omeqfhwaa-cjiqravx? hydrochlorothiazide 25 mg tablet daily?? levothyroxine 75 mcg tablet daily nintedanib (Ofev)150 PO BIDWMEAL ondansetron 4 mg disintegrating p.r.n.? tamoxifen 20 mg tablet daily valsartan 320 mg tablet bedtime vilazodone 60 mg tablet daily? Patient educated on: diagnosis, medication risk/benefits, therapeutic strategies and medical condition Informed Consent: understands Reason for continued inpatient stay Substantial Risk for: harm to self Statement Statement: I have reviewed the history and physical and performed a pertinent examination on my patient. No changes have occurred unless specified. If the History and Physical was not performed prior to admission, the Hospitalist's service will be consulted for completing the admission physical. Time Spent With Patient Time: Total time managing care of this patient today ____ minutes.
[2023-05-02 18:00] VITALS: BP 119/66; PULSE 84; RESP 18; TEMP 36.5; O2SAT 95
[2023-05-02] MEDS: Valsartan 320 MG TABLET PO (20:56)
[2023-05-03] MEDS: Levothyroxine Sodium 75 MCG TABLET PO (06:10)
[2023-05-03 07:40] VITALS: BP 111/63; PULSE 83; RESP 18; TEMP 36.1; O2SAT 100
[2023-05-03] MEDS: Tamoxifen Citrate 10 MG TABLET 20 MG PO (09:12)
[2023-05-03] MEDS: Fluticasone/Umeclidinium/Vilanterol 200/62.5/25 BLST.W.DEV 1 PUFF INHALE (09:12)
[2023-05-03] MEDS: Atorvastatin Calcium 20 MG TABLET PO (09:13)
[2023-05-03] MEDS: Aspirin 81 MG TAB.CHEW PO (09:13)
[2023-05-03] MEDS: ARIPiprazole 5 MG TABLET PO (09:13)
[2023-05-03] MEDS: hydroCHLOROthiazide 25 MG TABLET PO (09:13)
[2023-05-03] MEDS: Vilazodone HCL 40 MG TABLET PO (09:14)
[2023-05-03] MEDS: Vilazodone HCL 20 MG TABLET PO (09:14)
--- NOTE | 2023-05-03 13:03 | PC.NURSE ---
Patient needs medication verified with [facility] on Thursday, Nintedanib 150mg PO BID with meals. Not open on Sat/Sun, .
--- NOTE | 2023-05-03 16:01 | P.PNPSI_ITS ---
Subjective Subjective Date of Service: 05/03/23 Reason For Visit: Major depressive disorder, recurrent episode Interim History: Met with patient; discussed with team patient remains depressed. She was incontinent of urine overnight Patient is pushing herself to remember the things that have helped her overcome depression in the past; shared about how she has been inspired by her father, who emigrated from [facility] doing menial jobs until eventually got himself into [facility] and worked on government projects. Patient is struggling to not want to give up. Children and grandchildren remains strong protective factor and patient does not want to leave them a Legacy of suicide. Mental Status Exam Mental Status Exam Narrative: Pt is alert and oriented; behavior is cooperative, friendly and calm; patient is not in distress; dressed in casual attire, well groomed; mood is described as depressed and affect congruent, downcast; eye contact avoiding; Speech is a soft, a little slowed but normal prosody; psychomotor retardation present; thought process is organized and goal directed; Thought content is on bleak outlook, tired of fighting, pushing off SI; otherwise pertinent to relevant topics and without any delusional content, paranoid ideations or grandiosity; passive SI/no HI. There is no evidence of perceptual disturbance. Patients insight and judgment impaired Diagnostics Vital Signs (24Hr): Vital Signs - 24 hr 05/02/23 18:00 05/03/23 07:40 Temperature 97.7 F 97 F Pulse Rate 84 83 Respiratory Rate 18 18 Blood Pressure 119/66 111/63 Pulse Oximetry 95 100 Oxygen Delivery Method Room Air Room Air Labs Labs: Laboratory Results - last 48 hr 05/01/23 22:45 COVID-19 ([facility]) Negative COVID-19 Clin Com See Note Medications Medications Current Medications Acetaminophen (Acetaminophen 325 Mg Tablet) 650 mg PO Q6H PRN PRN Reason: Headache/Pain Mild Scale (1-3) Al Hydroxide/Mg Hydroxide (Magnesium Hydrox/Alum Hydrox 30 Ml Oral.Susp) 30 ml PO Q6H PRN PRN Reason: Heartburn/Nausea Aripiprazole (Aripiprazole 5 Mg Tablet) 5 mg PO DAILY [facility] Last Admin: 05/03/23 09:13 Dose: 5 mg Aspirin (Aspirin 81 Mg Tab.Chew) 81 mg PO DAILY [facility] Last Admin: 05/03/23 09:13 Dose: 81 mg Atorvastatin Calcium (Atorvastatin Calcium 20 Mg Tablet) 20 mg PO DAILY [facility] Last Admin: 05/03/23 09:13 Dose: 20 mg Fluticasone/Umeclidinium/Vilanterol (Fluticasone/Umeclidinium/Vilanterol 200/62.5/25 Blst.W.Dev) 1 puff INHALE RDAILY [facility] Last Admin: 05/03/23 09:12 Dose: 1 puff Hydrochlorothiazide (Hydrochlorothiazide 25 Mg Tablet) 25 mg PO DAILY [facility]; Protocol Last Admin: 05/03/23 09:13 Dose: 25 mg Levothyroxine Sodium (Levothyroxine Sodium 75 Mcg Tablet) 75 mcg PO DAILY@0600 [facility] Last Admin: 05/03/23 06:10 Dose: 75 mcg Magnesium Hydroxide (Milk Of Magnesia 30 Ml Oral.Susp) 30 ml PO DAILY PRN PRN Reason: Constipation Nintedanib 150 Mg 150 each PO BIDWM [facility] Ondansetron HCl (Ondansetron Odt 4 Mg Tab.Rapdis) 4 mg TRANSLINGU Q8H PRN PRN Reason: nausea Tamoxifen Citrate (Tamoxifen Citrate 10 Mg Tablet) 20 mg PO DAILY [facility] Last Admin: 05/03/23 09:12 Dose: 20 mg Trazodone HCl (Trazodone Hcl 25 Mg Halftab) 25 mg PO BEDTIME MRX1 PRN PRN Reason: Insomnia Valsartan (Valsartan 320 Mg Tablet) 320 mg PO BEDTIME [facility]; Protocol Last Admin: 05/02/23 20:56 Dose: 320 mg Vilazodone HCl (Vilazodone Hcl 20 Mg Tablet) 20 mg PO DAILY [facility] Last Admin: 05/03/23 09:14 Dose: 20 mg Vilazodone HCl (Vilazodone Hcl 40 Mg Tablet) 40 mg PO DAILY [facility] Last Admin: 05/03/23 09:14 Dose: 40 mg Allergies Allergies Allergy/AdvReac Type Severity Reaction Status Date / Time benztropine [From Cogentin] AdvReac Hemolytic Verified 05/01/23 22:23 Anemia carbamazepine AdvReac Hemolytic Verified 05/01/23 22:23 Anemia levetiracetam [From Keppra] AdvReac Hemolytic Verified 05/01/23 22:23 Anemia Phenothiazines AdvReac Hemolytic Verified 05/01/23 22:23 Anemia phenytoin [From Dilantin] AdvReac Hemolytic Verified 05/01/23 22:23 Anemia Assessment & Plan Assessment & Plan (1) MDD (major depressive disorder), recurrent episode, severe: Status: Acute Code(s): F33.2 - Major depressive disorder, recurrent severe without psychotic features (2) Pulmonary fibrosis: Status: Acute Code(s): J84.10 - Pulmonary fibrosis, unspecified Plan HPI: Patient is a 77-year-old resilient woman with history of depression, pulmonary fibrosis, sleep apnea on CPAP at home who self presents for worsening depression and suicidal ideation. Patient reports that she has done well for quite some time until a few months ago when she got a worsening prognosis of lung complications due to pulmonary fibrosis. Since then she has been feeling more depressed. Patient cites other stressors that are contributory including her sons struggles depression and recent miscarriage. Than, A few weeks ago she went to look at a jail with her daughter which further worsened depressive symptoms including low energy, poor concentration, diminished interest, not getting out of bed triggering suicidal ideation. Patient said she started having fantasies about dying and even killing herself. Love for her children and grandchildren is a strong protective factors so patient call friend asking for ride to the emergency room. Patient has been taking her medications regularly. She was restarted on Abilify just 2 days ago because of depression. Patient reports struggling with wanting to give up and but also not wanting to leave her children with that painful memory. Given the patient was recently restarted on Abilify, 2 days ago will leave medications as they are and see if augmentation is helpful; patient cannot remember whether or not it was helpful in the past HOSPITAL COURSE: 05/03 patient remains depressed. She is pushing herself to remember the things that have helped her overcome depression in the past -nintedanib pending verification -ordered CPAP Plan: CV Q 15 minute checks Ordered CPAP Continue home medications PENDING VERIFICATION: nintedanib (Ofev)150 PO BIDWMEAL Protonix 40 mg PO QAM GERD daily aripiprazole 5 mg tablet daily (recently restarted) atorvastatin 20 mg tablet daily?? myizsaayidw-bjpyasnqq-zbtwsset? hydrochlorothiazide 25 mg tablet daily?? levothyroxine 75 mcg tablet daily ondansetron 4 mg disintegrating p.r.n.? tamoxifen 20 mg tablet daily valsartan 320 mg tablet bedtime vilazodone 60 mg tablet daily? Patient educated on: diagnosis, medication risk/benefits, therapeutic strategies and medical condition Informed Consent: understands Reason for continued inpatient stay Substantial Risk for: harm to self and rapid decompensation Time Spent With Patient Time: Total time managing care of this patient today ____ minutes.
[2023-05-03] MEDS: Ondansetron ODT 4 MG TAB.RAPDIS TRANSLINGU (17:52)
[2023-05-03 19:35] VITALS: BP 113/66; PULSE 76; RESP 18; TEMP 36.3; O2SAT 98
[2023-05-03] MEDS: Valsartan 320 MG TABLET PO (20:11)
[2023-05-04] MEDS: Levothyroxine Sodium 75 MCG TABLET PO (05:30)
[2023-05-04 08:03] VITALS: BP 105/57; PULSE 88; RESP 18; TEMP 36.4; O2SAT 98
[2023-05-04] MEDS: ARIPiprazole 5 MG TABLET PO (08:08)
[2023-05-04] MEDS: Vilazodone HCL 40 MG TABLET PO (08:08)
[2023-05-04] MEDS: Vilazodone HCL 20 MG TABLET PO (08:08)
[2023-05-04] MEDS: Atorvastatin Calcium 20 MG TABLET PO (08:08)
[2023-05-04] MEDS: Aspirin 81 MG TAB.CHEW PO (08:08)
[2023-05-04] MEDS: Fluticasone/Umeclidinium/Vilanterol 200/62.5/25 BLST.W.DEV 1 PUFF INHALE (08:09)
[2023-05-04] MEDS: Tamoxifen Citrate 10 MG TABLET 20 MG PO (08:09)
[2023-05-04 09:27] VITALS: BP 126/66
[2023-05-04] MEDS: hydroCHLOROthiazide 25 MG TABLET PO (09:34)
--- NOTE | 2023-05-04 11:24 | PC.NURSE ---
Morning BP 105/57 and Ade asymptomatic. HCTZ held. Recheck of BP 126/[address] Mesa notified of initial BP as well as f/u BP. Ade reported SI with a plan however did not disclose plan; I have several plans but I don't want to put my kids through that. She was asked if she felt that she could reach out to staff if she felt unsafe and she replied It depends who the staff member is. Dr. Ulrich notified of SI.
--- NOTE | 2023-05-04 14:59 | P.PNPSI_ITS ---
Subjective Subjective Date of Service: 05/04/23 Reason For Visit: Major depressive disorder, recurrent episode Subjective Notes: Conditional Voluntary Interim History: The nursing staff reported the patient had been compliant with treatment, she complains of depression but denies active suicidal ideation, she was able to contract for safety in the facility. On interview the patient reports that she had been feeling depressed and she is open for more treatment options and she gave permission to contact her outpatient providers.. Mental Status Exam Mental Status Exam Patient Appearance: Appropriate Patient Orientation: Person and Situation Level of Consciousness: Awake and Appropriate Patient Behavior: Guarded and Passive Mood Description: Withdrawn Affect Description: Constricted Patient Cognition Impaired: Yes Ability to Follow Directions: Good Speech Pattern: Clear Hallucinations: None Delusions: Not Present Thought Process: Linear Judgement: Fair Diagnostics Vital Signs (24Hr): Vital Signs - 24 hr 05/03/23 19:35 05/04/23 08:03 05/04/23 09:27 Temperature 97.3 F 97.6 F Pulse Rate 76 88 Respiratory Rate 18 18 Blood Pressure 113/66 105/57 L 126/66 Pulse Oximetry 98 98 Oxygen Delivery Method Room Air Room Air Medications Medications Current Medications Acetaminophen (Acetaminophen 325 Mg Tablet) 650 mg PO Q6H PRN PRN Reason: Headache/Pain Mild Scale (1-3) Al Hydroxide/Mg Hydroxide (Magnesium Hydrox/Alum Hydrox 30 Ml Oral.Susp) 30 ml PO Q6H PRN PRN Reason: Heartburn/Nausea Aripiprazole (Aripiprazole 5 Mg Tablet) 5 mg PO DAILY [facility] Last Admin: 05/04/23 08:08 Dose: 5 mg Aspirin (Aspirin 81 Mg Tab.Chew) 81 mg PO DAILY [facility] Last Admin: 05/04/23 08:08 Dose: 81 mg Atorvastatin Calcium (Atorvastatin Calcium 20 Mg Tablet) 20 mg PO DAILY [facility] Last Admin: 05/04/23 08:08 Dose: 20 mg Fluticasone/Umeclidinium/Vilanterol (Fluticasone/Umeclidinium/Vilanterol 200/62.5/25 Blst.W.Dev) 1 puff INHALE RDAILY [facility] Last Admin: 05/04/23 08:09 Dose: 1 puff Hydrochlorothiazide (Hydrochlorothiazide 25 Mg Tablet) 25 mg PO DAILY [facility]; Protocol Last Admin: 05/04/23 09:34 Dose: 25 mg Levothyroxine Sodium (Levothyroxine Sodium 75 Mcg Tablet) 75 mcg PO DAILY@0600 [facility] Last Admin: 05/04/23 05:30 Dose: 75 mcg Magnesium Hydroxide (Milk Of Magnesia 30 Ml Oral.Susp) 30 ml PO DAILY PRN PRN Reason: Constipation Nintedanib 150 Mg 150 each PO BIDWM [facility] Last Admin: 05/04/23 08:09 Dose: 150 each Ondansetron HCl (Ondansetron Odt 4 Mg Tab.Rapdis) 4 mg TRANSLINGU Q8H PRN PRN Reason: nausea Last Admin: 05/03/23 17:52 Dose: 4 mg Tamoxifen Citrate (Tamoxifen Citrate 10 Mg Tablet) 20 mg PO DAILY [facility] Last Admin: 05/04/23 08:09 Dose: 20 mg Trazodone HCl (Trazodone Hcl 25 Mg Halftab) 25 mg PO BEDTIME MRX1 PRN PRN Reason: Insomnia Valsartan (Valsartan 320 Mg Tablet) 320 mg PO BEDTIME [facility]; Protocol Last Admin: 05/03/23 20:11 Dose: 320 mg Vilazodone HCl (Vilazodone Hcl 20 Mg Tablet) 20 mg PO DAILY [facility] Last Admin: 05/04/23 08:08 Dose: 20 mg Vilazodone HCl (Vilazodone Hcl 40 Mg Tablet) 40 mg PO DAILY [facility] Last Admin: 05/04/23 08:08 Dose: 40 mg Allergies Allergies Allergy/AdvReac Type Severity Reaction Status Date / Time benztropine [From Cogentin] AdvReac Hemolytic Verified 05/01/23 22:23 Anemia carbamazepine AdvReac Hemolytic Verified 05/01/23 22:23 Anemia levetiracetam [From Keppra] AdvReac Hemolytic Verified 05/01/23 22:23 Anemia Phenothiazines AdvReac Hemolytic Verified 05/01/23 22:23 Anemia phenytoin [From Dilantin] AdvReac Hemolytic Verified 05/01/23 22:23 Anemia Assessment & Plan Assessment & Plan (1) MDD (major depressive disorder), recurrent episode, severe: Status: Acute Code(s): F33.2 - Major depressive disorder, recurrent severe without psychotic features (2) Pulmonary fibrosis: Status: Acute Code(s): J84.10 - Pulmonary fibrosis, unspecified Plan HPI: Patient is a 77-year-old resilient woman with history of depression, pulmonary fibrosis, sleep apnea on CPAP at home who self presents for worsening depression and suicidal ideation. Patient reports that she has done well for quite some time until a few months ago when she got a worsening prognosis of lung comp lications due to pulmonary fibrosis. Since then she has been feeling more depressed. Patient cites other stressors that are contributory including her sons struggles depression and recent miscarriage. Than, A few weeks ago she went to look at a [facility] with her daughter which further worsened depressive symptoms including low energy, poor concentration, diminished interest, not getting out of bed triggering suicidal ideation. Patient said she started having fantasies about dying and even killing herself. Love for her children and grandchildren is a strong protective factors so patient call friend asking for ride to the emergency room. Patient has been taking her medications regularly. She was restarted on Abilify just 2 days ago because of depression. Patient reports struggling with wanting to give up and but also not wanting to leave her children with that painful memory. Given the patient was recently restarted on Abilify, 2 days ago will leave medications as they are and see if augmentation is helpful; patient cannot remember whether or not it was helpful in the past HOSPITAL COURSE: 05/03 patient remains depressed. She is pushing herself to remember the things that have helped her overcome depression in the past -nintedanib pending verification -ordered CPAP Plan: CV Q 15 minute checks Ordered CPAP Continue home medications PENDING VERIFICATION: nintedanib (Ofev)150 PO BIDWMEAL Protonix 40 mg PO QAM GERD daily aripiprazole 5 mg tablet daily (recently restarted) atorvastatin 20 mg tablet daily?? ymmlppyowko-cfermffmn-tqovuspu? hydrochlorothiazide 25 mg tablet daily?? levothyroxine 75 mcg tablet daily ondansetron 4 mg disintegrating p.r.n.? tamoxifen 20 mg tablet daily valsartan 320 mg tablet bedtime vilazodone 60 mg tablet daily? Reason for continued inpatient stay Substantial Risk for: inability to function, rapid decompensation and med/psych decompensation Time Spent With Patient Time: Total time managing care of this patient today __20__ minutes.
[2023-05-04 18:00] VITALS: BP 125/64; PULSE 64; RESP 18; TEMP 36.9; O2SAT 97
[2023-05-04] MEDS: Valsartan 320 MG TABLET PO (20:22)
[2023-05-05] MEDS: Levothyroxine Sodium 75 MCG TABLET PO (05:17)
[2023-05-05 08:00] VITALS: BP 117/70; PULSE 92; RESP 18; TEMP 36.8; O2SAT 98
[2023-05-05] MEDS: Aspirin 81 MG TAB.CHEW PO (08:46)
[2023-05-05] MEDS: Tamoxifen Citrate 10 MG TABLET 20 MG PO (08:46)
[2023-05-05] MEDS: Vilazodone HCL 20 MG TABLET PO (08:46)
[2023-05-05] MEDS: Vilazodone HCL 40 MG TABLET PO (08:47)
[2023-05-05] MEDS: Atorvastatin Calcium 20 MG TABLET PO (08:47)
[2023-05-05] MEDS: ARIPiprazole 5 MG TABLET PO (08:47)
[2023-05-05] MEDS: hydroCHLOROthiazide 25 MG TABLET PO (08:47)
[2023-05-05] MEDS: Fluticasone/Umeclidinium/Vilanterol 200/62.5/25 BLST.W.DEV 1 PUFF INHALE (08:53)
[2023-05-05] MEDS: Albuterol Sulfate 90 MCG 8 GM INHALER 2 PUFF INHALE ×2 (09:46→16:18)
--- NOTE | 2023-05-05 15:51 | P.PNPSI_ITS ---
Subjective Subjective Date of Service: 05/05/23 Reason For Visit: Major depressive disorder, recurrent episode Subjective Notes: Conditional Voluntary and 3 Day Interim History: The nursing staff reported the patient had been alert oriented times poor, visible in the common areas, she adamantly denies suicidal ideation. She refused her CPAP machine and she slept 6 hours. The social media marketing manager reported the patient wants to sign AMA she agreed to sign a 3 day notice. On interview the patient adamantly denies suicidal ideation she is feeling much better, future oriented. We discussed and we will try to discharge her tomorrow with aftercare. Mental Status Exam Mental Status Exam Patient Appearance: Well Grooomed and Appropriate Patient Orientation: Person, Place, Time and Situation Level of Consciousness: Awake and Appropriate Patient Behavior: Appropriate, Cooperative and Passive Mood Description: Constricted Affect Description: Calm Patient Cognition Impaired: Yes Ability to Follow Directions: Good Speech Pattern: Clear Hallucinations: None Delusions: Not Present Thought Process: Linear Thought Content: positive for Circumstantial Judgement: Fair Diagnostics Vital Signs (24Hr): Vital Signs - 24 hr 05/04/23 18:00 05/05/23 08:00 Temperature 98.5 F 98.2 F Pulse Rate 64 92 Respiratory Rate 18 18 Blood Pressure 125/64 117/70 Pulse Oximetry 97 98 Oxygen Delivery Method Room Air Room Air Medications Medications Current Medications Acetaminophen (Acetaminophen 325 Mg Tablet) 650 mg PO Q6H PRN PRN Reason: Headache/Pain Mild Scale (1-3) Al Hydroxide/Mg Hydroxide (Magnesium Hydrox/Alum Hydrox 30 Ml Oral.Susp) 30 ml PO Q6H PRN PRN Reason: Heartburn/Nausea Albuterol Sulfate (Albuterol Sulfate 90 Mcg 8 Gm Inhaler) 2 puff INHALE RQ4H PRN PRN Reason: Dyspnea Last Admin: 05/05/23 09:46 Dose: 2 puff Aripiprazole (Aripiprazole 5 Mg Tablet) 5 mg PO DAILY [facility] Last Admin: 05/05/23 08:47 Dose: 5 mg Aspirin (Aspirin 81 Mg Tab.Chew) 81 mg PO DAILY [facility] Last Admin: 05/05/23 08:46 Dose: 81 mg Atorvastatin Calcium (Atorvastatin Calcium 20 Mg Tablet) 20 mg PO DAILY [facility] Last Admin: 05/05/23 08:47 Dose: 20 mg Fluticasone/Umeclidinium/Vilanterol (Fluticasone/Umeclidinium/Vilanterol 200/62.5/25 Blst.W.Dev) 1 puff INHALE RDAILY [facility] Last Admin: 05/05/23 08:53 Dose: 1 puff Hydrochlorothiazide (Hydrochlorothiazide 25 Mg Tablet) 25 mg PO DAILY [facility]; Protocol Last Admin: 05/05/23 08:47 Dose: 25 mg Levothyroxine Sodium (Levothyroxine Sodium 75 Mcg Tablet) 75 mcg PO DAILY@0600 [facility] Last Admin: 05/05/23 05:17 Dose: 75 mcg Loperamide HCl (Loperamide Hcl 2 Mg Capsule) 2 mg PO Q6H PRN PRN Reason: Diarrhea Magnesium Hydroxide (Milk Of Magnesia 30 Ml Oral.Susp) 30 ml PO DAILY PRN PRN Reason: Constipation Nintedanib 150 Mg 150 each PO BIDWM [facility] Last Admin: 05/05/23 08:53 Dose: 150 each Ondansetron HCl (Ondansetron Odt 4 Mg Tab.Rapdis) 4 mg TRANSLINGU Q8H PRN PRN Reason: nausea Last Admin: 05/03/23 17:52 Dose: 4 mg Tamoxifen Citrate (Tamoxifen Citrate 10 Mg Tablet) 20 mg PO DAILY [facility] Last Admin: 05/05/23 08:46 Dose: 20 mg Trazodone HCl (Trazodone Hcl 25 Mg Halftab) 25 mg PO BEDTIME MRX1 PRN PRN Reason: Insomnia Valsartan (Valsartan 320 Mg Tablet) 320 mg PO BEDTIME [facility]; Protocol Last Admin: 05/04/23 20:22 Dose: 320 mg Vilazodone HCl (Vilazodone Hcl 20 Mg Tablet) 20 mg PO DAILY [facility] Last Admin: 05/05/23 08:46 Dose: 20 mg Vilazodone HCl (Vilazodone Hcl 40 Mg Tablet) 40 mg PO DAILY [facility] Last Admin: 05/05/23 08:47 Dose: 40 mg Allergies Allergies Allergy/AdvReac Type Severity Reaction Status Date / Time benztropine [From Cogentin] AdvReac Hemolytic Verified 05/01/23 22:23 Anemia carbamazepine AdvReac Hemolytic Verified 05/01/23 22:23 Anemia levetiracetam [From Keppra] AdvReac Hemolytic Verified 05/01/23 22:23 Anemia Phenothiazines AdvReac Hemolytic Verified 05/01/23 22:23 Anemia phenytoin [From Dilantin] AdvReac Hemolytic Verified 05/01/23 22:23 Anemia Assessment & Plan Assessment & Plan (1) MDD (major depressive disorder), recurrent episode, severe: Status: Acute Code(s): F33.2 - Major depressive disorder, recurrent severe without psychotic features (2) Pulmonary fibrosis: Status: Acute Code(s): J84.10 - Pulmonary fibrosis, unspecified Plan HPI: Patient is a 77-year-old resilient woman with history of depression, pulmonary fibrosis, sleep apnea on CPAP at home who self presents for worsening depression and suicidal ideation. Patient reports that she has done well for quite some time until a few months ago when she got a worsening prognosis of lung complications due to pulmonary fibrosis. Since then she has been feeling more depressed. Patient cites other stressors that are contributory including her sons struggles depression and recent miscarriage. Than, A few weeks ago she went to look at a [place] [facility] with her daughter which further worsened depressive symptoms including low energy, poor concentration, diminished interest, not getting out of bed triggering suicidal ideation. Patient said she started having fantasies about dying and even killing herself. Love for her children and grandchildren is a strong protective factors so patient call friend asking for ride to the emergency room. Patient has been taking her medications regularly. She was restarted on Abilify just 2 days ago because of depression. Patient reports struggling with wanting to give up and but also not wanting to leave her children with that painful memory. Given the patient was recently restarted on Abilify, 2 days ago will leave medications as they are and see if augmentation is helpful; patient cannot remember whether or not it was helpful in the past HOSPITAL COURSE: 05/03 patient remains depressed. She is pushing herself to remember the things that have helped her overcome depression in the past -nintedanib pending verification -ordered CPAP Plan: CV Q 15 minute checks Ordered CPAP Continue home medications PENDING VERIFICATION: nintedanib (Ofev)150 PO BIDWMEAL Protonix 40 mg PO QAM GERD daily aripiprazole 5 mg tablet daily (recently restarted) atorvastatin 20 mg tablet daily?? eahlztkpkfy-sudilelno-jfbujwck? hydrochlorothiazide 25 mg tablet daily?? levothyroxine 75 mcg tablet daily ondansetron 4 mg disintegrating p.r.n.? tamoxifen 20 mg tablet daily valsartan 320 mg tablet bedtime vilazodone 60 mg tablet daily? Discharge for tomorrow Reason for continued inpatient stay Substantial Risk for: inability to function, rapid decompensation and med/psych decompensation Time Spent With Patient Time: Total time managing care of this patient today _20___ minutes.
[2023-05-05 18:00] VITALS: BP 119/62; PULSE 82; RESP 18; TEMP 37.1; O2SAT 97
[2023-05-06] MEDS: Levothyroxine Sodium 75 MCG TABLET PO (06:09)
[2023-05-06 07:45] VITALS: BP 119/63; PULSE 80; RESP 18; TEMP 36; O2SAT 98
[2023-05-06] MEDS: Aspirin 81 MG TAB.CHEW PO (08:39)
[2023-05-06] MEDS: ARIPiprazole 5 MG TABLET PO (08:39)
[2023-05-06] MEDS: Fluticasone/Umeclidinium/Vilanterol 200/62.5/25 BLST.W.DEV 1 PUFF INHALE (08:39)
[2023-05-06] MEDS: Vilazodone HCL 40 MG TABLET PO (08:39)
[2023-05-06] MEDS: Tamoxifen Citrate 10 MG TABLET 20 MG PO (08:39)
[2023-05-06] MEDS: Vilazodone HCL 20 MG TABLET PO (08:40)
[2023-05-06] MEDS: hydroCHLOROthiazide 25 MG TABLET PO (08:40)
[2023-05-06] MEDS: Atorvastatin Calcium 20 MG TABLET PO (08:40)
--- NOTE | 2023-05-06 09:19 | P.DS_ITS ---
DS: Providers Provider Date of Service: 05/06/23 Date of admission: 05/01/23 21:44 Date of discharge: 05/06/23 Primary care physician: Unknown Physician Attending physician on admission: Porfirio Solis Consults: 05/01/23 22:37 Consult to Hospitalist Routine Comment: Consulting Provider: Hospitalist Reason For Exam: admission physical Attending physician on discharge: Juan Diego Mesa DS: Diagnosis Discharge Diagnosis (1) MDD (major depressive disorder), recurrent episode, severe: Status: Acute (2) Pulmonary fibrosis: Status: Acute DS: Medications Discharge Medications Home Medications: Home Medications Medication Instructions Recorded Confirmed Protonix 40 mg PO QAM GERD 05/02/23 05/02/23 aripiprazole 5 mg tablet 5 mg PO DAILY 05/02/23 05/02/23 atorvastatin 20 mg tablet 20 mg PO DAILY 05/02/23 05/02/23 [id number] See Rx Instructions .Route 05/02/23 05/02/23 .COMPLEX SOB hydrochlorothiazide 25 mg tablet 25 mg PO DAILY 05/02/23 05/02/23 levothyroxine 75 mcg tablet 75 mcg PO DAILY 05/02/23 05/02/23 nintedanib 150 mg capsule (Ofev) 150 PO BIDWMEAL 05/02/23 ondansetron 4 mg disintegrating 4 mg PO Q8H PRN nausea 05/02/23 05/02/23 tablet tamoxifen 20 mg tablet 20 mg PO DAILY 05/02/23 05/02/23 valsartan 320 mg tablet 320 mg PO BEDTIME 05/02/23 05/02/23 vilazodone 20 mg tablet (Viibryd) 20 mg PO DAILY 05/02/23 05/02/23 vilazodone 40 mg tablet (Viibryd) 40 mg PO DAILY 05/02/23 05/02/23 Mental Status Exam Mental Status Exam Patient Appearance: Well Grooomed and Appropriate Patient Orientation: Person, Place, Time and Situation Level of Consciousness: Awake and Appropriate Patient Behavior: Appropriate and Cooperative Mood Description: Calm Affect Description: Constricted Patient Cognition Impaired: No Ability to Follow Directions: Good Speech Pattern: Clear Hallucinations: None Delusions: Not Present Thought Process: Goal Oriented and Linear Thought Content: positive for Circumstantial Judgement: Fair Data Data Completed and Pending Completed studies during hospitalization [Text1]: 05/01/23 22:45 COVID-19 ([facility]) Negative COVID-19 Clin Com See Note DS: Summary Hospital Course Hospital Course: The patient is a 77 year male with a past history of major depressive disorder and several comorbidities who was admitted to this facility from the emergency room of a different hospital with exacerbation of depression with suicidal ideation in the context of worsening medical problems. Please see the HPI of the admission note for further details. On admission, the patient reported feeling more depressed for the last weeks after her pulmonary fibrosis get worse. She reported several stressors such as problems with her son, medical problems and a recent change of providers. Her psychiatrist retired after treating her for more than 20 years and she has a new provider. We discussed at length risks, benefits, side-effects and alternatives and she agreed to continue with the same psychotropics and reassess in a few days. The patient was future oriented, pleasant cooperative and she was able to participate in some groups. She decided that she wanted to go back home she was able to contract for safety and she signed a 3 day notice. Since there were no safety concerns discharge planning was discussed. There was no evidence of manic symptoms or psychosis. Time spent discussing smoking cessation with patient: 3 to 10 minutes Status at Discharge Cognitive/behavioral status at discharge: At baseline Functional status at discharge: independent ambulation Overall status at discharge: patient is back to baseline Time Spent with Patient Time attestation: Total time managing care of this patient today __30__ minutes. Time spent: Less than 30 minutes Discharge Plan Discharge Anticipated Discharge Date/Time: 05/06/23 10:00 Patient Disposition: Home, Self-Care Discharge Diagnosis: Major depressive disorder recurrent episode severe without psychosis. Pulmonary fibrosis. Referrals: Psychiatrist: Dr. Chin ([facility]) [Other] - 05/15/23 10:40 am (Appointment is in person at their office in [place] ) Therapist: Suzanna Abrams [Other] - 1 Week (Call Suzanna to follow-up and schedule your next therapy appointment ) Physician,Eder J [Primary Care Provider] - 1 Week Discharge Medications: New aspirin 81 mg Tablet,Chewable 81 mg PO DAILY 30 Days Qty: 30 0RF Trelegy Ellipta 200-62.5-25 mcg Blister With Device 1 inh inhalation RDAILY 30 Days Qty: 30 0RF Continued atorvastatin 20 mg tablet 20 mg PO DAILY 30 Days Qty: 30 0RF levothyroxine 75 mcg tablet 75 mcg PO DAILY 30 Days Qty: 30 0RF valsartan 320 mg tablet 320 mg PO BEDTIME 30 Days Qty: 30 0RF hydrochlorothiazide 25 mg tablet 25 mg PO DAILY 30 Days Qty: 30 0RF ondansetron 4 mg tablet,disintegrating 4 mg PO Q8H PRN (Reason: nausea) 30 Days Qty: 30 0RF tamoxifen 20 mg tablet 20 mg PO DAILY 30 Days Qty: 30 0RF aripiprazole 5 mg tablet 5 mg PO DAILY Qty: 30 0RF vilazodone [Viibryd] 20 mg tablet 20 mg PO DAILY Qty: 30 0RF vilazodone [Viibryd] 40 mg tablet 40 mg PO DAILY Qty: 30 0RF Rx Instructions: Take with 20mg Protonix tablet 40 mg PO QAM 30 Days Qty: 30 0RF [id number] inhaler See Rx Instructions .ROUTE .COMPLEX Qty: 1 0RF Rx Instructions: 200-62.5-25 mcg Changed Ofev 150 mg capsule 150 mg PO BIDWMEAL Qty: 60 0RF Discharge Orders: Discharge Order (Routine); Ordered 05/06/23 Ordered By: Juan Diego Mesa Diet: Advance to usual diet Activity on Discharge: As tolerated Stand Alone Forms: Patient Portal Discharge page Care Plan Goals: Care plan goals achieved in this admission, resolution of suicidal ideation. Health Concerns: Continue treatment with outpatient providers. Plan of Treatment: Continue psychiatric treatment by outpatient providers. Assessment: Elderly female with a past history of major depressive disorder and several medical comorbidities admitted for exacerbation of depression with passive suicidal ideation in the context of worsening of her health. While she was in the unit, we did not do any medical changes, she reported feeling more stable with no safety concerns, she signed a 3 day notice.
== END 2023-05-06 10:54 | disposition home or self-care (01) | DRG 885 ==
PROVIDERS: Psychiatry & Neurology Psychiatry; Admitting Provider Psychiatry & Neurology Psychiatry; Visit Provider Psychiatry & Neurology Psychiatry
DX: F33.2 Major depressive disorder, recurrent severe without psychotic features (principal); F43.10 Post-traumatic stress disorder, unspecified; J45.40 Moderate persistent asthma, uncomplicated; K21.9 Gastro-esophageal reflux disease without esophagitis; J84.10 Pulmonary fibrosis, unspecified; K44.9 Diaphragmatic hernia without obstruction or gangrene; C50.911 Malignant neoplasm of unspecified site of right female breast; Z20.822 Contact with and (suspected) exposure to COVID-19; Z79.51 Long term (current) use of inhaled steroids; Z79.82 Long term (current) use of aspirin; Z79.890 Hormone replacement therapy; Z79.810 Long term (current) use of selective estrogen receptor modulators (SERMs); Z79.899 Other long term (current) drug therapy
CPT/HCPCS: 87635; 94660

== ENCOUNTER → 2023-05-01 21:44 | Outpatient (BNV) | payer MEDICARE, MEDICAID, SELFPAY | PROVIDERS: Admitting Provider Psychiatry & Neurology Psychiatry; Visit Provider Psychiatry & Neurology Psychiatry | DX: F33.2 Major depressive disorder, recurrent severe without psychotic features (principal); J84.10 Pulmonary fibrosis, unspecified | CPT/HCPCS: 90792; 99231; 99232; 99238 ==

== ENCOUNTER → 2023-05-01 21:44 | Outpatient (BNV) | payer MEDICARE, MEDICAID, SELFPAY | PROVIDERS: Admitting Provider Psychiatry & Neurology Psychiatry; Visit Provider Physician Assistant | DX: Z02.2 Encounter for examination for admission to residential institution (principal) | CPT/HCPCS: 99429 ==